=== PATIENT | male | born 2000 | race Caucasian/White ===

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

== ENCOUNTER 2024-09-09 18:30 | Emergency (ER) | payer SELFPAY ==
[2024-09-09 18:31] VITALS: BP 125/91; PULSE 110; RESP 16; TEMP 36.9; O2SAT 100; BMI 30.3
== END 2024-09-09 22:13 | disposition left against medical advice (07) ==
LOC: ED 22:39
DX: Z00.00 Encounter for general adult medical examination without abnormal findings (principal)

== ENCOUNTER 2025-04-30 13:02 | Emergency (ER) | payer OTHER, SELFPAY ==
[2025-04-30 13:02] VITALS: BP 138/87; PULSE 82; RESP 14; TEMP 36.6; O2SAT 98
--- NOTE | 2025-04-30 13:19 | ED.VIS.DENTA ---
HPI History of Present Illness Chief Complaint: Dental Informant: patient Onset/Context/Timing Onset: Yesterday Context: Gradual Onset Timing: Continuous Quality: Stabbing, cramping, and throbbing Location: Right upper and lower molars Worsened by: Cold, eating, and chewing Relieved by: - (Nothing) Associated Symptoms Assocated Symptom - Dental: fever, jaw swelling and cold sensitivity; Negative for face swelling or hot sensitivity Narrative Narrative: Patient presents with dental pain that began yesterday. Patient describes it as stabbing, cramping, and throbbing. Patient states it is over the right upper and lower molars. Patient states it is worse with eating and chewing. Patient also admits to cold sensitivity. Patient admits to subjective fever but denies taking his temperature. Patient admits to some swelling over the upper and lower molar area. Patient denies any difficulty breathing or difficulty swallowing. Patient admits to some nausea due to the pain. [facility] Medical History Pain, dental Home Medications ?Medication ?Instructions ?Recorded ?Last Taken ?Type hydrocodone-acetaminophen 5-325mg 1 tab PO Q6H PRN PRN Pain 3 days 04/30/25 Unknown Rx 5mg-325mg #10 TABLETS penicillin V potassium 500 mg 500 mg PO 4X/DAY #40 tabs 04/30/25 Unknown Rx tablet Allergy/AdvReac Type Severity Reaction Status Date / Time No Known Allergies Allergy Verified 04/30/25 13:02 Surgical History no surgical history no surgical history Social History Smoking Status: Unknown if ever smoked ROS ROS ED Constitutional Constitutional ED: Denies chills or fever(s) Eyes Eyes: Denies blurry vision or change in vision ENT ENT ED: Denies rhinorrhea or sore throat Cardiovascular Cardiovascular: Denies chest pain or palpitations Respiratory/Chest Respiratory/Chest: Denies cough or dyspnea Gastrointestinal Gastrointestinal: Reports nausea; Denies vomiting Genitourinary Genitourinary ED: Denies dysuria or hematuria Musculoskeletal Musculoskeletal: Reports neck pain; Denies back pain Integumentary Denies abscess or rash Neurologic Neurologic: Reports headache(s); Denies weakness Allergic/Immunologic Allergic/Immunologic ED: Denies mouth swelling or urticaria EXAM Physical Exam Const Vital Signs: 04/30/25 13:02 Temperature 98 F Temperature Source Temporal Pulse Rate 82 Respiratory Rate 14 Blood Pressure 138/87 H Blood Pressure Mean 104 Pulse Ox 98 Oxygen Delivery Method Room Air Positive well nourished and well developed General Appearance ED: well developed and NAD HEENT HEENT Narrative: There is a large dental carry noted over the right upper first molar. There is gingival edema around this tooth. There is no discharge or drainage. There is no fluctuance. There is no evidence of any abscess. There is tenderness to percussion over the lower molars as well. Oropharynx is clear. Airway is patent. Neck is supple. Trachea is midline. There is no sublingual edema. There is no evidence of Jasbir's angina. Teeth and Gingiva: caries and gingiva abnormal Positive for gingival edema Throat: posterior oropharynx normal Neck supple and no JVD General: Negative for anterior neck swelling, tenderness or submandibular swelling Neuro oriented x3, CN's II-XII intact bilaterally, moves all extremities, no focal motor deficits and no sensory deficits noted Sensorium / Orientation: alert Motor Exam: strength 5/5 throughout Psych mental status grossly normal MDM MDM MDM Narrative Medical decision making narrative: Patient was advised that he most likely has infected dental caries. Patient was given a dose of Pen-Vee K here. Patient was given a prescription for Pen-Vee K. Patient was given a dose of [place] here. Patient was given a prescription for short course of [place]. Patient was instructed to follow-up with a dentist in 5 to 7 days. Patient was instructed to return if worse in any way. Patient understood and was agreeable with the plan. All questions were answered. Discharge Plan Triage Chief Complaint: Dental ED Provider: Ervin Rodríguez Dx/Rx/DC Orders Clinical Impression: Infected dental caries, Odontalgia Instructions: ED Dental Pain, ED Dental Cavity Prescriptions: New hydrocodone-acetaminophen 5-325 mg tablet 1 tab PO Q6H PRN PRN (Reason: Pain) 3 Days Qty: 10 0RF penicillin V potassium 500 mg tablet 500 mg PO 4X/DAY Qty: 40 0RF Primary Care Provider: Care Physician,No Primary Referrals: Care Physician,No Primary [Primary Care Provider] - Print Language: [place]ian Disposition Disposition: Home, Self Care
[2025-04-30] MEDS: HYDROcodone Bitartrate/Apap 5/325 Tablet PO (13:51)
[2025-04-30] MEDS: Penicillin Vk 250 MG Tablet 500 MG PO (13:51)
--- OUTSIDE RECORDS SUMMARY | 2025-04-30 19:24 | XMS RPT_ITS | CCD ---
Author Organization [facility] Inform ion Partnership [facility] Care Team Providers Care Bleach Maker Name Role Phone KELLY BARBOZA (DANIKA) Referring Unavailable Unavailable Primary Care Provider DOUGLAS Hays Attending Unavailable Provider, Ed Physician Attending Unavailab Care Physician, No Primary Primary Care Unava ilable Care Physician, No Primary Primary Care Provider Unavailable Dr. Ervin Rodríguez DO Emergency Provider [phone] Medications Current Medications Medication Drug Class(es) Dates Sig (Normalized) Sig (Original) acetaminophen 325 mg / HYDROcodone bitartrate 5 mg oral tablet (1 source) Opioid Agonist Start: 04-30-2025 take 1 tablet by mouth every six hours as needed for pain Hydrocodone-Aceta minophen 5-325 mg tablet Active 1 {tbl} PO EVERY 6 HOURS NEEDED as needed for Pain 10 3 0 April 30, 2025 Toothache Other specified disorders of teeth and supporting structures Start: 04-30-2025 take 1 tablet by jessica th every six hours as needed for pain Hydrocodone-Acetaminophen 5-325 mg table t Active 1 {tbl} PO EVERY 6 HOURS NEEDED as needed for Pain 10 3 0 April 30, 2025 Toothache Other specified disorders of teeth and supporting structures penicillin v potassium 500 mg oral tablet (1 source) Start: 04-30-2025 take 1 tablet by mouth four times daily Penicillin V Potassium 500 mg tablet Active 500 mg PO 4 TIMES DAILY 40 0 April 30, 2025 12:00am Problems Problem Classification Problem Date Documented Da te Episodic/Chronic Abdominal pain (1 source) Right upper quadrant pain; Translations: [Right upper quadrant pain] 08-29-2019 Episodic Disorders of teeth and jaw (2 sources) Dental caries; Translations: [Dental caries, unspecified] 04-30-2025 Episodic Suicide and intentional self-inflicted injury (4 sources) Suicidal thoughts; Translations: [Suicidal ideations] Onset: 04-12-2024 04-12-2024 Episodic Results Test Name Value Interpretation Reference Range Facility ACETAMINOPHEN LEVELon 2023 Acetaminophen [Mass/Vol] ug/mL Low 10.0-30.0 [facility] Comment on above: Performed By: #### L AB43, LAB34, LAB46, LAB17 ####Butcher Apprentice: ISABEL VERAS ([id number])[facility] ([address] Acetaminophen [Mass/Vol]on 0 04-12-2024 Interpretation and review of laboratory results Abnormal [facility] CBC W Auto Differential pane l (Bld)on 04-12-2024 Basophils (Bld) [#/Vol] 0.0 10*3/uL 0.0 - 0.2 10*3/uL [facility] Basophils/100 WBC (Bld) 0.4 % 0.0 - 2.0 % [facility] Eosinophils (Bld) [#/Vol] 0.1 10*3/uL 0. 0 - 0.5 10*3/uL [facility] Eosinophils/100 WBC (Bld) 0.8 % 0.0 - 6.0 % [facility] Erythrocyte distribution width (RBC) [Ratio] 13.0 % 11.5 - 15.0 % [facility] Hematocrit (Bld) [Volume fraction] 43.5 % 40.0 - 52.0 % [facility] Hemoglobin (Bld) [Mass/Vol] 14.5 g/dL 13.0 - 18.0 g/dL [facility] Immature granulocytes (Bld) [#/Vol] 0.0 10*3/uL NINF - 0.1 10*3/uL [facility] Immature granulocytes/100 WBC (Bld) 0.3 % 0.0 - 2.0 % [facility] Interpretation and review of laboratory results Normal [facility] Lymphocytes (Bld) [#/Vol] 3.4 10*3/uL 1. 0 - 4.3 10*3/uL [facility] Lymphocytes/100 WBC (Bld) 36.9 % 15.0 - 45. 0 % [facility] MCH (RBC) [Entitic mass] 29.1 pg 26. 0 - 34.0 pg [facility] MCHC (RBC) [Mass/Vol] 33.3 % 30.5 - 36.0 % [facility] MCV (RBC) [Entitic vol] 87.2 fL 77.0 - 99.0 fL [facility] Monocytes (Bld) [#/Vol] 0.7 10*3/uL 0.0 - 0.9 10*3/uL [facility] Monocytes/100 WBC (Bld) 7.1 % 5.0 - 13.0 % [facility] Neutrophils (Bld) [#/Vol] 5.1 10*3/uL 1. 8 - 7.5 10*3/uL [facility] Neutrophils/100 WBC (Bld) 54.5 % 38.0 - 82. 0 % [facility] Nucleated RBC/100 WBC (Bld) [Ratio] 0.0 % [facility] Platelet mean volume (Bld) [Entitic vol] 11.4 fL 9.0 - 12.7 fL [facility] Platelets (Bld) [#/Vol] 209 10*3/uL 140 - 440 10*3/uL [facility] RBC (Bld) [#/Vol] 4.99 10*6/uL 4.40 - 5.9 0 10*6/uL [facility] WBC (Bld) [#/Vol] 9.3 10*3/uL 3.6 - 10.7 10*3/uL [facility] CBC WITH AUTO DIFFERENTIALon 04-12-2024 Basophils (Bld) [#/Vol] 0.0 10*3/uL Normal 0.0-0.2 [facility] Comment on above: Performed By: #### L [id number] ####Butcher Apprentice: ISABEL VERAS ([id number])[address] Basophils/100 WBC (Bld) 0.4 % Normal 0.0-2.0 [facility] Comment on above: Performed By: #### L [id number] ####Butcher Apprentice: ISABEL VERAS ([phone])[facility])[address] [place] [address] Eosinophils (Bld) [#/Vol] 0.1 10*3/uL Normal 0.0-0.5 [facility] Comment on above: Performed By: #### L [id number] ####Butcher Apprentice: ISABEL VERAS ([phone])[facility])[address] [place] [address] Eosinophils/100 WBC (Bld) 0.8 % Normal 0.0-6.0 [facility] Comment on above: Performed By: #### L [id number] ####Butcher Apprentice: ISABEL VERAS ([id number])[facility])[address] [place] [address] Erythrocyte distribution width (RBC) [Ratio] 13.0 % Normal 11.5-15.0 [facility] Comment on above: Performed By: #### L [id number] ####Butcher Apprentice: ISABEL VERAS ([id number])[address] Hematocrit (Bld) [Volume fraction] 43.5 % Normal 40.0-52.0 [facility] Comment on above: Performed By: #### L [id number] ####Butcher Apprentice: ISABEL VERAS ([id number])[address] Hemoglobin (Bld) [Mass/Vol] 14.5 g/dL Normal 13.0-18.0 [facility] Comment on above: Performed By: #### L [id number] ####Butcher Apprentice: ISABEL VERAS ([id number])[facility])[address] [place] [address] IMMATURE GRANS % 0.3 % Normal 0.0-2.0 [facility] Comment on above: Performed By: #### L [id number] ####Butcher Apprentice: ISABEL VERAS ([id number])[address] IMMATURE GRANS ABSOLUTE 0.0 10*3/uL Normal <0.1 [facility] Comment on above: Performed By: #### L [id number] ####Butcher Apprentice: ISABEL VERAS ([id number])[facility])[address] [place] [address] Lymphocytes (Bld) [#/Vol] 3.4 10*3/uL Normal 1.0-4.3 [facility] Comment on above: Performed By: #### L [id number] ####Butcher Apprentice: ISABEL VERAS ([id number])[facility])[address] [place] [address] Lymphocytes/100 WBC (Bld) 36.9 % Normal 15.0-45.0 [facility] Comment on above: Performed By: #### L [id number] ####Butcher Apprentice: ISABEL VERAS ([id number])[facility])[address] [place] [address] MCH (RBC) [Entitic mass] 29.1 pg Normal 26.0-34.0 [facility] Comment on above: Performed By: #### L [id number] ####Butcher Apprentice: ISABEL VERAS ([phone])[facility] ([facility])[address] [place] [address] MCHC 33.3 % Normal 30.5-36.0 [facility] Comment on above: Performed By: #### L [id number] ####Butcher Apprentice: ISABEL VERAS ([id number])[facility] ([facility])[address] [place] [address] MCV (RBC) [Entitic vol] 87.2 fL Normal 77.0-99.0 [facility] Comment on above: Performed By: #### L [id number] ####Butcher Apprentice: ISABEL VERAS ([id number])[facility] ([facility])[address] [place] [address] [place] Monocytes (Bld) [#/Vol] 0.7 10*3/uL Normal 0.0-0.9 [facility] Comment on above: Performed By: #### L [id number] ####Butcher Apprentice: ISABEL VERAS ([id number])[facility])[address] [place] [address] [place] Monocytes/100 WBC (Bld) 7.1 % Normal 5.0-13.[address] [facility] Comment on above: Performed By: #### L [id number] ####Butcher Apprentice: ISABEL VERAS ([id number])[facility] ([facility])[address] [place] [address] NEUTROPHILS ABSOLUTE 5.1 10*3/uL Normal 1.8-7.5 [facility] Comment on above: Performed By: #### L [id number] ####Butcher Apprentice: ISABEL VERAS ([id number])[facility] ([facility])[address] [place] [address] Neutrophils/100 WBC (Bld) 54.5 % Normal 38.0-82.0 [facility] Comment on above: Performed By: #### L [id number] ####Butcher Apprentice: ISABEL VERAS ([id number])[facility] ([facility])[address] [place] [address] NRBC 0.0 /100 WBCs Normal 0.0-2.0 [facility] Comment on above: Performed By: #### L [id number] ####Butcher Apprentice: ISABEL VERAS ([id number])[facility] ([facility])[address] [place] [address] Platelet mean volume (Bld) [Entitic vol] 11.4 fL Normal 9.0-12.7 [facility] Comment on above: Performed By: #### L [id number] ####Butcher Apprentice: ISABEL VERAS ([id number])[facility] ([facility])[address] [place] [address] [place] Platelets (Bld) [#/Vol] 209 10*3/uL Normal 140-440 [facility] Comment on above: Performed By: #### L [id number] ####Butcher Apprentice: ISABEL VERAS ([id number])[facility] ([facility])[address] [place] [address] [place] RBC (Bld) [#/Vol] 4.99 10*6/uL Normal 4.40-5.90 [facility] Comment on above: Performed By: #### L [id number] ####Butcher Apprentice: ISABEL VERAS ([id number])[facility] ([facility])[address] [place] [address] WBC (Bld) [#/Vol] 9.3 10*3/uL Normal 3.6-10.7 [facility] Comment on above: Performed By: #### L [id number] ####Butcher Apprentice: ISABEL VERAS ([id number])[facility] ([facility])[address] [place] [address] COMPLETE URINALYSISon 2023 BACTERIA (#/HPF) IN URINE Negative Normal Negative [facility] Comment on above: Performed By: #### L [id number] ####Butcher Apprentice: ISABEL VERAS ([id number])[facility] ([facility])[address] [place] [address] BILIRUBIN, TOTAL PRESENCE IN URINE Negative Normal Negative [facility] Comment on above: Performed By: #### L [id number] ####Butcher Apprentice: ISABEL VERAS ([id number])[facility] ([facility])[address] [place] [address] Clarity (U) Clear Normal Clear [facility] Comment on above: Performed By: #### L [id number] ####Butcher Apprentice: ISABEL VERAS ([id number])[facility] ([facility])[address] [place] [address] Color (U) Yellow Normal Lt. Yellow [facility] Comment on above: Performed By: #### L [id number] ####Butcher Apprentice: ISABEL VERAS ([id number])[facility] ([facility])[address] [place] [address] GLUCOSE (MG/DL) IN URINE Normal Normal Normal (<70 ) [facility] Comment on above: Performed By: #### L [id number] ####Butcher Apprentice: ISABEL VERAS ([id number])[facility] ([facility])[address] [place] [address] HEMOGLOBIN PRESENCE IN URINE Negative Normal Negative [facility] Comment on above: Performed By: #### L [id number] ####Butcher Apprentice: ISABEL VERAS ([id number])[facility] ([facility])[address] [place] [address] [place] HYALINE CASTS (#/LPF) IN URINE SEDIMENT BY MICROSCOPY Negative Normal Negative [facility] Comment on above: Performed By: #### L [id number] ####Butcher Apprentice: ISABEL VERAS ([id number])[facility] ([facility])[address] [place] [address] Ketones Ql (U) Negative Normal Negative [facility] Comment on above: Performed By: #### L [id number] ####Butcher Apprentice: ISABEL VERAS ([id number])[facility] ([facility])[address] [place] [address] LEUKOCYTE ESTERASE PRESENCE IN URINE BY TEST STRIP Negative Normal Negative [facility] Comment on above: Performed By: #### L [id number] ####Butcher Apprentice: ISABEL VERAS ([id number])[facility] ([facility])[address] [place] [address] [place] MUCUS (#/LPF) IN URINE SEDIMENT Few Normal Negative [facility] Comment on above: Performed By: #### L [id number] ####Butcher Apprentice: ISABEL VERAS ([id number])[facility] ([facility])[address] [place] [address] NITRITE PRESENCE IN URINE Negative Normal Negative [facility] Comment on above: Performed By: #### L [id number] ####Butcher Apprentice: ISABEL VERAS ([id number])[facility] ([facility])[address] [place] [address] pH (U) 5.5 [pH] Normal 5.0-8.0 [facility] Comment on above: Performed By: #### L [id number] ####Butcher Apprentice: ISABEL VERAS ([id number])[facility] ([facility])[address] [place] [address] Protein (U) [Mass/Vol] 30 mg/dL Abnormal Negative [facility] Comment on above: Performed By: #### L [id number] ####Butcher Apprentice: ISABEL VERAS ([id number])[facility] ([facility])[address] [place] [address] RBC (#/HPF) IN URINE SEDIMENT 0-2 Normal 0-2 [facility] Comment on above: Performed By: #### L [id number] ####Butcher Apprentice: ISABEL VERAS ([id number])[facility] ([facility])[address] [place] [address] Specific gravity (U) [Rel density] 1.035 High 1.005-1.030 [facility] Comment on above: Performed By: #### L [id number] ####Butcher Apprentice: ISABEL VERAS ([id number])[facility])[address] [place] [address] SQUAMOUS EPITHELIAL CELLS (#/HPF) IN URINE SEDIMENT 0-2 Normal 3-5 [facility] Comment on above: Performed By: #### L [id number] ####Butcher Apprentice: ISABEL VERAS ([id number])[facility] ([facility])[address] [place] [address] UROBILINOGEN (MG/DL) IN URINE Normal Normal Normal (0-1) [facility] Comment on above: Performed By: #### L [id number] ####Butcher Apprentice: ISABEL VERAS ([phone])[facility])[address] [place] [address] WBC (LEUKOCYTE) (#/HPF) IN URINE SEDIMENT 0-2 Normal 0-5 [facility] Comment on above: Performed By: #### L [id number] ####Butcher Apprentice: ISABEL VERAS ([id number])[facility] ([facility])[address] [place] [address] COMPREHENSIVE METABOLIC PANE Shant 04-12-2024 Albumin [Mass/Vol] 4.5 g/dL Normal 3.5-5.0 [facility] Comment on above: Performed By: #### L AB43, LAB34, LAB46, LAB17 ####Butcher Apprentice: ISABEL VERAS ([id number])[facility] ([facility])[address] [place] [address] ALP [Catalytic activity/Vol] 68 U/L Normal 38-126 [facility] Comment on above: Performed By: #### L AB43, LAB34, LAB46, LAB17 ####Butcher Apprentice: ISABEL VERAS ([id number])[facility] ([facility])[address] [place] [address] ALT [Catalytic activity/Vol] 54 U/L High 0-49 [facility] Comment on above: Performed By: #### L AB43, LAB34, LAB46, LAB17 ####Butcher Apprentice: ISABEL VERAS ([id number])[facility] ([facility])[address] [place] [address] Anion gap [Moles/Vol] 7 mmol/L Normal 3-13 [facility] Comment on above: Performed By: #### L AB43, LAB34, LAB46, LAB17 ####Butcher Apprentice: ISABEL VERAS ([id number])[facility] ([facility])[address] [place] [address] AST [Catalytic activity/Vol] 35 U/L Normal 15-46 [facility] Comment on above: Performed By: #### L AB43, LAB34, LAB46, LAB17 ####Butcher Apprentice: ISABEL VERAS ([id number])[facility] ([facility])[address] [place] [address] Bilirubin [Mass/Vol] 0.6 mg/dL Normal 0.2-1.3 [facility] Comment on above: Performed By: #### L AB43, LAB34, LAB46, LAB17 ####Butcher Apprentice: ISABEL VERAS ([id number])[facility] ([facility])[address] [place] [address] Calcium [Mass/Vol] 9.4 mg/dL Normal 8.4-10.4 [facility] Comment on above: Performed By: #### L AB43, LAB34, LAB46, LAB17 ####Butcher Apprentice: ISABEL VERAS ([id number])[facility] ([facility])[address] [place] [address] [place] Chloride [Moles/Vol] 100 mmol/L Normal 98-107 [facility] Comment on above: Performed By: #### L AB43, LAB34, LAB46, LAB17 ####Butcher Apprentice: ISABEL VERAS ([id number])[facility] ([facility])[address] [place] [address] CO2 [Moles/Vol] 33 mmol/L High 22-30 [facility] Comment on above: Performed By: #### L AB43, LAB34, LAB46, LAB17 ####Butcher Apprentice: ISABEL VERAS ([id number])[facility] ([facility])[address] [place] [address] Creatinine [Mass/Vol] 0.90 mg/dL Normal 0.66-1.25 [facility] Comment on above: Performed By: #### L AB43, LAB34, LAB46, LAB17 ####Butcher Apprentice: ISABEL VERAS ([id number])[facility] ([facility])[address] [place] [address] GLOMERULAR FILTRATION RATE ML/MIN/1.73 SQ M.PREDICTED >90.0 Normal >60.0 [facility] Comment on above: Result Comment: Calc ulation based on the Chronic Kidney Disease Epidemiology Collaboration (CKD-EPI) equation refit without adjustment for race Performed By: #### L AB43, LAB34, LAB46, LAB17 ####Butcher Apprentice: ISABEL VERAS ([id number])[facility] ([facility])[address] [place] [address] [place] Glucose [Mass/Vol] 78 mg/dL Normal 70-100 [facility] Comment on above: Performed By: #### L AB43, LAB34, LAB46, LAB17 ####Butcher Apprentice: ISABEL VERAS ([id number])[facility] ([facility])[address] [place] [address] [place] Potassium [Moles/Vol] 3.3 mmol/L Low 3.5-5.1 [facility] Comment on above: Performed By: #### L AB43, LAB34, LAB46, LAB17 ####Butcher Apprentice: ISABEL VERAS ([id number])[facility])[address] [place] [address] Protein [Mass/Vol] 7.7 g/dL Normal 6.3-8.2 [facility] Comment on above: Performed By: #### L AB43, LAB34, LAB46, LAB17 ####Butcher Apprentice: ISABEL VERAS ([id number])[facility] ([facility])[address] [place] [address] Sodium [Moles/Vol] 140 mmol/L Normal 135-145 [facility] Comment on above: Performed By: #### L AB43, LAB34, LAB46, LAB17 ####Butcher Apprentice: ISABEL VERAS ([id number])[facility])[address] [place] [address] Urea nitrogen [Mass/Vol] 14 mg/dL Normal 9-20 [facility] Comment on above: Performed By: #### L AB43, LAB34, LAB46, LAB17 ####Butcher Apprentice: ISABEL VERAS ([id number])[facility])[address] [place] [address] Comprehensive metabolic 1998 panelon 04-12-2024 Albumin [Mass/Vol] 4.5 g/dL 3.5 - 5.0 g/dL [facility] ALP [Catalytic activity/Vol] 68 U/L 38 - 126 U/L [facility] ALT [Catalytic activity/Vol] 54 U/L High 0 - 49 U/L [facility] Anion gap [Moles/Vol] 7 mmol/L 3 - 13 mmol/L [facility] AST [Catalytic activity/Vol] 35 U/L 15 - 46 U/L [facility] Bilirubin [Mass/Vol] 0.6 mg/dL 0.2 - 1 .3 mg/dL [facility] Calcium [Mass/Vol] 9.4 mg/dL 8.4 - 10. 4 mg/dL [facility] Chloride [Moles/Vol] 100 mmol/L 98 - 10 7 mmol/L [facility] CO2 [Moles/Vol] 33 mmol/L High 22 - 30 mmol/L [facility] Creatinine [Mass/Vol] 0.90 mg/dL 0.66 - 1.25 mg/dL [facility] GFR/1.73 sq M.predicted MDRD (S/P/Bld) [Vol rate/Area] - PINF [facility] Comment on above: Calculation based on the Chronic Kidney Disease Epidemiology Collaboration (CKD-EPI) equation refit without adjustment for race Glucose [Mass/Vol] 78 mg/dL 70 - 100 mg/dL [facility] Interpretation and review of laboratory results Abnormal [facility] Potassium [Moles/Vol] 3.3 mmol/L Low 3.5 - 5.1 mmol/L [facility] Protein [Mass/Vol] 7.7 g/dL 6.3 - 8.2 g/dL [facility] Sodium [Moles/Vol] 140 mmol/L 135 - 145 mmol/L [facility] Urea nitrogen [Mass/Vol] 14 mg/dL 9 - 20 mg/d L [facility] DRUGS OF ABUSEon 04-12-2024 AMPHETAMINE SCREEN Positive Normal [facility] Comment on above: Performed By: #### L [id number] ####Butcher Apprentice: ISABEL VERAS ([id number])[facility])[address] [place] [address] BARBITURATES SCREEN Negative Normal [facility] Comment on above: Performed By: #### L [id number] ####Butcher Apprentice: ISABEL VERAS ([id number])[facility] ([facility])[address] [place] [address] BENZODIAZEPINE SCREEN Negative Normal [facility] Comment on above: Performed By: #### L [id number] ####Butcher Apprentice: ISABEL VERAS ([id number])[facility])[address] [place] [address] COCAINE METAB. SCREEN Negative Normal [facility] Comment on above: Performed By: #### L [id number] ####Butcher Apprentice: ISABEL VERAS ([id number])[facility] ([facility])[address] [place] [address] METHADONE SCREEN Negative Normal [facility] Comment on above: Performed By: #### L [id number] ####Butcher Apprentice: ISABEL VERAS ([id number])[facility] ([facility])[address] [place] [address] OPIATES SCREEN Negative Normal [facility] Comment on above: Performed By: #### L [id number] ####Butcher Apprentice: ISABEL VERAS ([id number])[facility] ([facility])[address] [place] [address] OXYCODONE SCREEN Negative Normal [facility] Comment on above: Performed By: #### L [id number] ####Butcher Apprentice: ISABEL VERAS ([id number])[facility] ([facility])[address] [place] [address] PHENCYCLIDINE SCREEN Negative Normal [facility] Comment on above: Result Comment: HARLEY R COMMENTS: The expected value for all of the drugs listed above is Negative. The following drugs or drug groups have been screened for by Immunoassay at the following thresholds: Amphetamine class (1000 ng/mL) Barbiturates (200 ng/mL) Benzodiazepines (200 ng/mL) Cocaine (300 ng/mL) Methadone (300 ng/mL) Opiates (300 ng/mL) Oxycodone (100 ng/mL) PCP (25 ng/mL) NOTE: These results are for medical treatment only. Analysis performed using non-forensic procedures. POSITIVE results are NOT confirmed by a more specific alternative method unless requested. If confirmation is needed, request confirmation under separate order. Performed By: #### L [id number] ####Butcher Apprentice: ISABEL VERAS ([id number])[facility] ([facility])[address] [place] [address] ED Nursing Noteon 04-12-2024 ED Nursing Note Pt is being discharged. He was given his belongings and taken to room 47 to change back into his own clothing. Lorraine Scott 04/12/24 1008 [facility] ED Nursing Note Providers in room speaking with pt. Michelle Avila 04/12/24 0854 [facility] ED Nursing Note Pt using the bathroom per request Michelle Avila 04/12/24 0849 [facility] ED Nursing Note Breakfast tray given to pt. Michelle Bustillos Austin 04/12/24 0824 [facility] ED Nursing Note Provider in room speaking with pt Michelle Gonzalezpson 04/12/24 0743 [facility] ED Nursing Note Registration in [facility] 04/12/24 0713 [facility] ED Nursing Note Patient had urine collected and sent to lab. Juan Ramon Madden RN 04/12/24 0710 [facility] ED Nursing Note Isaiah Gomez in rm obtaining vitals [facility] 04/12/24 0659 [facility] ED Nursing Note Dr Mcknight in speaking w/ pt [facility] 04/12/24 0623 [facility] ED Nursing Note Wanded by PS 2 bags [facility] 04/12/24 0603 [facility] ED Nursing Note Pt changing into 2 gowns, non slip socks [facility] 04/12/24 0549 [facility] ED Nursing Note Pt walked back to ED BH unit by JANESSA Tenorio In rm 47 for intake process Calm and cooperative. [facility] 04/12/24 0547 [facility] ED Nursing Note Patient presents to the ED via triage by self. Patient states that he has been struggling with anxiety, depression, and suicidal ideation. Patient states that he has been having a rough time recently. Patient states that he was recently fired and he was kicked out of his dads home. Patient currently living out of his vehicle. Patient states that he has had vivid images about suicide. Patient also states that he was walking down train tracks at one time and thought about jumping but didn't. Patient states that he lost his brother in law in October and felt like he pulled him back off of the train tracks. Patient calm and cooperative throughout triage process. [facility] ED Provider Noteon ED Provider Note EMERGENCY DEPARTMENT ENCOUNTER Pt Name: Keyana Pham Birthdate 2000 Date of evaluation: 04/12/2024 ED Provider: Fernando Mcknight II, MD CHIEF COMPLAINT Chief Complaint Patient presents with Psychiatric Evaluation HISTORY OF PRESENT ILLNESS (Location/Symptom, Timing/Onset, Context/Setting, Quality, Duration, Modifying Factors, Severity) Note limiting factors. I wore appropriate PPE for the entirety of this encounter. HPI Keyana Pham is a 23 y.o. who presents to the emergency department with concerns for suicidal ideation. Patient details multiple psychosocial conflicts with his ex-girlfriend and his father. Patient states that he has been having intensifying thoughts of hurting himself over the past couple weeks. He states that he has thought of various ways to do this including walking onto the railroad tracks as well as driving his truck off the road. Patient denies any habitual alcohol use but states that he uses amphetamines multiple times within the past 24 hours. Patient states that he has been having nonspecific auditory hallucinations. He does not take any psychiatric medications. Nursing Notes were reviewed. Limitations to history: Outside historians: REVIEW OF SYSTEMS Review of Systems Pertinent positives and negatives as per HPI. PAST MEDICAL HISTORY History reviewed. No pertinent past medical history. SURGICAL HISTORY History reviewed. No pertinent surgical history. CURRENT MEDICATIONS Previous Medications No medications on file ALLERGIES Patient has no known allergies. FAMILY HISTORY No family history on file. SOCIAL HISTORY Social History Socioeconomic History Marital status: Single Tobacco Use Smoking status: Some Days Types: Cigarettes Smokeless tobacco: Never Vaping Use Vaping Use: Every day Substance and Sexual Activity Alcohol use: Yes Drug use: Yes Types: Methamphetamines, Marijuana SCREENINGS PHYSICAL EXAM ED Triage Vitals [04/12/24 0548] Temp Heart Rate Resp BP 36.8 ?C (98.3 ?F) 105 18 131/88 SpO2 Temp Source Heart Rate Source Patient Position 100 % Temporal Monitor -- BP Location FiO2 (%) -- -- Physical Exam Vitals and nursing note reviewed. Constitutional: General: He is not in acute distress. Appearance: He is well-developed. HENT: Head: Normocephalic and atraumatic. Eyes: Conjunctiva/sclera: Conjunctivae normal. Cardiovascular: Rate and Rhythm: Normal rate and regular rhythm. Heart sounds: No murmur heard. Pulmonary: Effort: Pulmonary effort is normal. No respiratory distress. Breath sounds: Normal breath sounds. Abdominal: Palpations: Abdomen is soft. Tenderness: There is no abdominal tenderness. Musculoskeletal: General: No swelling. Cervical back: Neck supple. Skin: General: Skin is warm and dry. Capillary Refill: Capillary refill takes less than 2 seconds. Neurological: Mental Status: He is alert. Psychiatric: Mood and Affect: Mood normal. DIAGNOSTIC RESULTS RADIOLOGY (Per Emergency Physician): Interpretation per the Radiologist below, if available at the time of this note: No orders to display LABS: Labs Reviewed COMPREHENSIVE METABOLIC PANEL - Abnormal Result Value SODIUM 140 POTASSIUM 3.3 (*) CHLORIDE 100 CARBON DIOXIDE 33 (*) ANION GAP 7 UREA NITROGEN 14 CREATININE 0.90 GLUCOSE 78 CALCIUM 9.4 AST (SGOT) 35 ALT 54 (*) ALKALINE PHOSPHATASE 68 ALBUMIN 4.5 BILIRUBIN, TOTAL 0.6 TOTAL PROTEIN 7.7 eGFR >90.0 COMPLETE URINALYSIS - Abnormal Color, Urine Yellow Clarity, Urine Clear pH, Urine 5.5 Leukocytes, Urine Negative Nitrite, Urine Negative Protein, Urine 30 (*) Glucose, Urine Normal Bilirubin, Urine Negative Ketones, Urine Negative Urobilinogen, Urine Normal Blood, Urine Negative RBC, Urine 0-2 WBC, Urine 0-2 Squamous Epithelial, Urine 0-2 Bacteria, Urine Negative Mucus, Urine Few Hyaline Casts, Urine Negative SPECIFIC GRAVITY OF URINE (NUMERIC) 1.035 (*) ACETAMINOPHEN LEVEL - Abnormal ACETAMINOPHEN <10.0 (*) SARS-COV-2 ANTIGEN - Normal SARS-CoV-2 Antigen Negative CBC WITH AUTO DIFFERENTIAL - Normal Auto WBC 9.3 RBC 4.99 Hemoglobin 14.5 Hematocrit 43.5 MCV 87.2 MCH 29.1 MCHC 33.3 RDW 13.0 Platelets 209 MPV 11.4 nRBC 0.0 Neutrophils Relative 54.5 Lymphocytes Relative 36.9 Monocytes Relative 7.1 Eosinophils Relative 0.8 Basophils Relative 0.4 Immature Grans % 0.3 Neutrophils Absolute 5.1 Lymphocytes Absolute 3.4 Monocytes Absolute 0.7 Eosinophils Absolute 0.1 Basophils Absolute 0.0 Immature Grans Absolute 0.0 ETHANOL - Normal ETHANOL IN SER/PLAS <0.010 Narrative: NOTE: This result is for medical treatment only. Analysis performed using non-forensic procedures. SALICYLATE - Normal SALICYLATES <1.0 COMPLETE URINALYSIS WITH REFLEX TO CULTURE Narrative: The following orders were created for panel order Complete Urinalysis wit (more content not included)... Normal [facility] ED Provider Note Emergency Department Encounter [facility] EMERGENCY DEPT Patient: Keyana Pham : 2000 Date of Evaluation: 04/12/2024 ED Supervising Physician: Douglas Lord MD I personally evaluated Keyana Pham and made/approved the management plan and take responsibility for the patient management. This will serve as my Supervisory note and shared attestation. I did perform a substantive portion of the visit including all aspects of the Medical Decision Making. I wore appropriate PPE for the entirety of this encounter. In brief, Keyana Pham is a 23 y.o. that presents to the emergency department suicidal ideation not feeling better admits to methamphetamine use no medical complaints Focused exam: Patient is calm cooperative forthcoming with information denies suicidal ideation expresses need to see a psychiatrist and likely be on meds vital stable Brief ED course/MDM: Patient presenting with suicidal ideation vitals are stable has no medical complaints. Patient is very forthcoming with information admits to walking on train tracks a few weeks ago contemplating suicide he says he is not suicidal now but understands that he likely needs to see a psychiatrist again on medications preference would be to go home and follow-up as an outpatient with possible with psychiatry evaluate if they agree feel relatively comfortable with discharge close outpatient follow-up with his ex-girlfriend who can come pick him up and take him to his car where he is living out of currently Diagnostics interpreted by me: I personally discussed the patient's management with other clinicians: All diagnostic, treatment, and disposition decisions were made by myself in conjunction with the Resident. I also supervised mckeon portions of any procedures performed by the Resident. For all further details of the patient's emergency department visit, please see their documentation. (Comment: Please note this report has been produced using speech recognition software and may contain errors related to that system including errors in grammar, punctuation, and spelling, as well as words and phrases that may be inappropriate. If there are any questions or concerns please feel free to contact the dictating provider for clarification.) Douglas Lord MD [employer] Douglas Lord MD 04/12/24 0810 Normal [facility] ETHANOLon 04-12-2024 ETHANOL IN SER/PLAS <0.010 Normal 0.000-0.010 [facility] Comment on above: Result Comment: HARLEY Henriquez COMMENTS: NOTE: This result is for medical treatment only. Analysis performed using non-forensic procedures. Performed By: #### L AB43, LAB34, LAB46, LAB17 ####Butcher Apprentice: ISABEL VERAS ([id number])[facility] ([facility])[address] [place] [address] Ethanol (Bld) [Mass/Vol]on 0 04-12-2024 Ethanol [Mass/Vol] g/dL 0.000 - 0 .010 g/dL [facility] Interpretation and review of laboratory results Normal [facility] Laboratory - Drug toxicology Ordered By: Rodney Hyatt on 04-12-2024 Amphetamines Screen method >1000 ng/mL Ql (U) Positive [facility] Barbiturates Screen method >200 ng/mL Ql (U) Negative [facility] ealth Benzodiazepines Ql (U) Negative [facility] Methadone Screen Ql (U) Negative [facility] Opiates Screen Ql (U) Negative [facility] oxyCODONE Ql (U) Negative [facility] alth Phencyclidine Ql (U) Negative [facility] Laboratory - Drug toxicology on 04-12-2024 Acetaminophen [Mass/Vol] ug/mL Low 10. 0 - 30.0 ug/mL [facility] Salicylates [Mass/Vol] mg/dL NINF - 20.0 mg/dL [facility] Laboratory - Microbiology an d Antimicrobial susceptibilityOrdered By: Kirsten Martinez on 04-12-2024 SARS-CoV-2 (COVID-19) Ag IA.rapid Ql (Resp) Negative Negative [facility] Comment on above: A negative result do es not rule out the possibility of SARS-CoV-2 infection. NAAT-based methods should be considered for symptomatic patients presenting greater than seven days after onset of symptoms. Method: Lateral flow immunoassay. Fact sheets for healthcare providers and patients can be found at the following sites: https://www.fda.gov/media/777163/download https://www.fda.gov/media/529462/download No Panel InformationOrdered By: Rodney Hyatt on 04-12-2024 COCAINE METAB. SCREEN Negative [facility] The expected value for all of the drugs listed above is Negative. The following drugs or drug groups have been screened for by Immunoassay at the following thresholds: Amphetamine class (1000 ng/mL) Barbiturates (200 ng/mL) Benzodiazepines (200 ng/mL) Cocaine (300 ng/mL) Methadone (300 ng/mL) Opiates (300 ng/mL) Oxycodone (100 ng/mL) PCP (25 ng/mL) NOTE: These results are for medical treatment only. Analysis performed using non-forensic procedures. POSITIVE results are NOT confirmed by a more specific alternative method unless requested. If confirmation is needed, request confirmation under separate order. [facility] No Panel Informationon 04-12 [facility] SALICYLATEon 04-12-2024 SALICYLATES <1.0 Normal <20.0 [facility] Comment on above: Performed By: #### L AB43, LAB34, LAB46, LAB17 ####Butcher Apprentice: ISABEL VERAS ([phone])[address] SARS-COV-2 ANTIGENon 024 SARS-COV-2 ANTIGEN SARS-COV-2 ANTIGEN -BINAX Reference Negative Negative A negative result does not rule out the possibility of SARS-CoV-2 infection. NAAT-based methods should be considered for symptomatic patients presenting greater than seven days after onset of symptoms. Method: Lateral flow immunoassay. Fact sheets for healthcare providers and patients can be found at the following sites: https://www.fda.gov /media/166005/downl oad https://www.fda.gov /media/741620/downl oad Normal [facility] Comment on above: Performed By: #### L [id number] #### Butcher Apprentice: ISABEL VERAS ([id number]) [address] SARS-CoV-2 (COVID-19) Ag IA. rapid Ql (Resp)Ordered By: Kirsten Martinez on 04-12-2024 Interpretation and review of laboratory results Normal [facility] Salicylates [Mass/Vol]on Interpretation and review of laboratory results Normal [facility] Urinalysis complete panel (U )Ordered By: Bee Jerome on 04-12-2024 Bacteria LM.HPF (Urine sed) [#/Area] Negative Negative /HPF [facility] Bilirubin Ql (U) Negative Negative mg/dL [facility] Clarity (U) Clear Clear [facility] Color (U) Yellow Lt. Yellow [facility] Epithelial cells.squamous LM.HPF (Urine sed) [#/Area] 0-2 [facility] Glucose Ql (U) Normal Normal (<70) mg/dL [facility] Hemoglobin Ql (U) Negative Negative mg/dL [facility] Hyaline casts Auto (Urine sed) [#/Area] Negative Negative /LPF [facility] Interpretation and review of laboratory results Abnormal [facility] Ketones (U) [Mass/Vol] Negative Negat maribel mg/dL [facility] Leukocyte esterase Test strip Ql (U) Negative Negative Reese/uL [facility] Mucus LM.HPF (Urine sed) [#/Area] Few Negative /LPF [facility] Nitrite Ql (U) Negative Negative [facility] th pH (U) 5.5 [pH] 5.0 - 8.0 pH [facility] Protein (U) [Mass/Vol] 30 mg/dL Abnormal Negative [facility] RBC LM.HPF (Urine sed) [#/Area] 0-2 [facility] Specific gravity (U) [Rel density] 1.035 High 1.005 - 1.030 [facility] Urobilinogen (U) [Mass/Vol] Normal Normal (0-1) mg/dL [facility] WBC LM.HPF (Urine sed) [#/Area] 0-2 [facility] CNOVon 12-22-2018 CNOV Office Visit (UCWSTR) ---- KEYANA PHAM ([id number]) 1 M Date Time Provider Department 12/22/18 4:00 PM KELLY BARBOZA (ANA LAURA) [facility] During your visit today, we recorded the following information about you: Temperature Pulse Respiration Blood pressure 98.7 degrees 100/minute 16/minute 120/80 Weight 103 kg Kelly Barboza APRN.CNP 12/22/2018 5:02 PM Signed Subjective HPI HPI Keyana Pham is a 18 year old male who presents today for CC of right knee pain, after twisting last week. This started 1 week ago. Has tried ice/ibuprofen. Symptoms are worsened by walking. Intermittent tingling of right lower extremity. .Patient presents with: Knee Pain: Right No past medical history on file. No past surgical history on file. ALLERGIES Patient has no known allergies. MEDICATIONS methylphenidate ER (CONCERTA) 18 mg CR tablet Take 18 mg by mouth once daily. No family history on file. Social History Substance Use Topics - Smoking status: Former Smoker - Smokeless tobacco: Former User - Alcohol use Not on file ROS Objective Blood pressure 120/80, pulse 100, temperature 37.1 ?C (98.7 ?F), temperature source Left Tympanic, resp. rate 16, weight 103 kg (227 lb). Physical Exam Constitutional: He is oriented to person, place, and time and well-developed, well-nourished, and in no distress. Non-toxic appearance. He does not have a sickly appearance. No distress. HENT: Head: Normocephalic and atraumatic. Cardiovascular: Pulses: Dorsalis pedis pulses are 2+ on the right side. Posterior tibial pulses are 2+ on the right side. Pulmonary/Chest: Effort normal. No accessory muscle usage. No respiratory distress. Musculoskeletal: Right knee: He exhibits decreased range of motion and swelling. He exhibits no effusion, no ecchymosis, no deformity, no laceration and no erythema. Tenderness found. Lateral joint line tenderness noted. Right lower extremity distal sensation intact. Neurological: He is alert and oriented to person, place, and time. Skin: He is not diaphoretic. ASSESSMENT/PLAN: 1. Acute pain of right knee - ICD9: 719.46, ICD10: M25.561 -no bony abnormality noted on xray, my read, will call when radiologist read is in -given stretches/exercises -Rest, Ice, Compression, Elevation discussed -discussed use of ibuprofen -follow up with primary care if symptoms persist/worsen in 10-14 days - XR KNEE GENERAL 4V AP BOTH/PA BOTH/LAT/MERC RT - Dictated by : KAILEE FLORIAN MD Impression IMPRESSION: No acute osseous abnormality. Prescription instructions reviewed with patient as applicable. Patient advised if symptoms do not improve or if symptoms worsen sooner, to contact the office for further evaluation by their primary care physician. Potential red flag symptoms discussed with the patient. Reviewed appropriate action plan to take if red flag symptoms occur. Patient agreeable to treatment plan. Kelly Barboza APRN.ANA LAURA Barboza APRN.CNP 12/22/2018 4:48 PM Signed ASSESSMENT/PLAN: 1. Acute pain of right knee - ICD9: 719.46, ICD10: M25.561 -no bony abnormality noted on xray, my read, will call when radiologist read is in -given stretches/exercises -Rest, Ice, Compression, Elevation discussed -discussed use of ibuprofen -follow up with primary care if symptoms persist/worsen in 10-14 days - XR KNEE GENERAL 4V AP BOTH/PA BOTH/LAT/MERC RT Referring Provider: SELF [200] Allergies As of Date: 12/22/2018 (No Known Allergies) Date Reviewed: 12/22/2018 Reviewed by: Kelly (Ana Laura) - Fully Assessed Reason for Visit: Knee Pain [132] Cmt: Right Primary Visit Diagnosis:Acute pain of right knee [M25.561] Order(s):XR KNEE GENERAL 4V AP BOTH/PA BOTH/LAT/MERC RT [[id number]] Order #: [id number] #:[id number] methylPREDNISolone (MEDROL, TRACY,) 4 mg Dose-PackFollow dosing instructions, take with food.Disp: 1 PackageRfl: 0 Prescriptions as of 12/22/2018 Sig: METHYLPREDNISOLONE 4 MG TABLE* Follow dosing instructions, t* METHYLPHENIDATE ER 18 MG TABL* Take 18 mg by mouth once luci* Problem List As Of Date: 12/22/2018 (None) Other instructions from your clinician: ASSESSMENT/PLAN: 1. Acute pain of right knee - ICD9: 719.46, ICD10: M25.561 -no bony abnormality noted on xray, my read, will call when radiologist read is in -given stretches/exercises -Rest, Ice, Compression, Elevation discussed -discussed use of ibuprofen -follow up with primary care if symptoms persist/worsen in 10-14 days - XR KNEE GENERAL 4V AP BOTH/PA BOTH/LAT/MERC RT Prescriptions ordered this encounter Disp Refills Start End METHYLPREDNISOLONE 4 MG TABLETS IN A* 1 Pa* 0 12/22/2018 12/28/2018 Sig: Follow dosing instructions, take with food. Letter Text [place] Kelly Barboza CNP [address] [place], [place] [address] 12/22/2018 Keyana Pham [facility]# [id number] [address] [facility] [address] TO WHOM IT MAY CONCERN: This is to confirm that Keyana Pham had an appointment and was seen at the [facility] in the Department of Urgent Care by Kelly Barboza CNP on 12/22/2018. Sincerely, Kelly Barboza CNP Encounter Status:Closed by KELLY BARBOZA CNP on 12/22/18 Normal [facility] PROGRESSon 12-22-2018 Protein mass conc HNO ID: [id number] Author: Isaiah Dominguez (Rt) Service: (none) Author Type: Furrier Shop Supervisor Type: Progress Notes Filed: 12/22/2018 4:39 PM Note Text: Radiology Service Progress Note PATIENT NAME: Keyana Pham DATE OF SERVICE: December 22, 2018 TIME: 4:26 PM PATIENT IDENTITY VERIFICATION COMPLETED USING TWO (2) METHODS: Patient confirmed name verbally and Date of . PATIENT GENDER DATA: Male PATIENT RELEVANT IMPLANT DATA REVIEWED: Not Applicable RADIOLOGY DEPARTMENT: General X-ray: Exam(s) Completed: Lower Extremity X-Ray(s): Knee, AP / Lat / Tunne / Merchant Right and Wt. Bearing: PERIPHERAL IV DATA: Not applicable SIGNED BY: RT Alberto December 22, 2018 4:26 PM Normal [facility] Protein mass conc HNO ID: [id number] Author: Kelly Barboza Service: (none) Author Type: Nurse Practitioner Type: Progress Notes Filed: 12/22/2018 5:02 PM Note Text: Subjective HPI HPI Keyana Pham is a 18 year old male who presents today for CC of right knee pain, after twisting last week. This started 1 week ago. Has tried ice/ibuprofen. Symptoms are worsened by walking. Intermittent tingling of right lower extremity. .Patient presents with: Knee Pain: Right No past medical history on file. No past surgical history on file. ALLERGIES Patient has no known allergies. MEDICATIONS methylphenidate ER (CONCERTA) 18 mg CR tablet Take 18 mg by mouth once daily. No family history on file. Social History Substance Use Topics - Smoking status: Former Smoker - Smokeless tobacco: Former User - Alcohol use Not on file ROS Objective Blood pressure 120/80, pulse 100, temperature 37.1 ?C (98.7 ?F), temperature source Left Tympanic, resp. rate 16, weight 103 kg (227 lb). Physical Exam Constitutional: He is oriented to person, place, and time and well-developed, well-nourished, and in no distress. Non-toxic appearance. He does not have a sickly appearance. No distress. HENT: Head: Normocephalic and atraumatic. Cardiovascular: Pulses: Dorsalis pedis pulses are 2+ on the right side. Posterior tibial pulses are 2+ on the right side. Pulmonary/Chest: Effort normal. No accessory muscle usage. No respiratory distress. Musculoskeletal: Right knee: He exhibits decreased range of motion and swelling. He exhibits no effusion, no ecchymosis, no deformity, no laceration and no erythema. Tenderness found. Lateral joint line tenderness noted. Right lower extremity distal sensation intact. Neurological: He is alert and oriented to person, place, and time. Skin: He is not diaphoretic. ASSESSMENT/PLAN: 1. Acute pain of right knee - ICD9: 719.46, ICD10: M25.561 -no bony abnormality noted on xray, my read, will call when radiologist read is in -given stretches/exercises -Rest, Ice, Compression, Elevation discussed -discussed use of ibuprofen -follow up with primary care if symptoms persist/worsen in 10-14 days - XR KNEE GENERAL 4V AP BOTH/PA BOTH/LAT/MERC RT - Dictated by : KAILEE FLORIAN MD Impression IMPRESSION: No acute osseous abnormality. Prescription instructions reviewed with patient as applicable. Patient advised if symptoms do not improve or if symptoms worsen sooner, to contact the office for further evaluation by their primary care physician. Potential red flag symptoms discussed with the patient. Reviewed appropriate action plan to take if red flag symptoms occur. Patient agreeable to treatment plan. Kelly Barboza APRN.FORMULA CLERK Normal [facility] XR KNEE 4V AP/PA BOTH+LAT/ME R RTon 12-22-2018 XR KNEE 4V AP/PA BOTH+LAT/MARCELINO RT * * *Final Report* * * DATE OF EXAM: Dec 22 2018 4:38PM WOX 5203 - XR KNEE 4V AP/PA BOTH+LAT/MARCELINO RT / PROCEDURE REASON: Acute pain of right knee * * * * Physician Interpretation * * * * TECHNIQUE: XR KNEE 4V AP/PA BOTH+LAT/MARCELINO RT HISTORY: Acute pain of right knee COMPARISON: None RESULT: The joint spaces are maintained. There are no fractures or dislocations identified. Bone mineralization is maintained. No soft tissue calcification. No significant suprapatellar knee effusion. IMPRESSION: No acute osseous abnormality. Agricultural Purchasing Agent: PSCB Transcribe Date/Time: Dec 22 2018 4:42P Dictated by : KAILEE FLORIAN MD This examination was interpreted and the report reviewed and electronically signed by: ANAIS DAVALOS MD on Dec 22 2018 4:47PM EST [id number] Normal [facility] Vital Signs Date Time Vital Sign Value Performing Clinician Mireille wade 04-30-2025 13:02-0400 Body height 180.34 cm No Primary Care Physician [facility] 04-30-2025 13:02-0400 Body temperature 98 [degF] No Primary Care Physician [facility] 04-30-2025 13:02-0400 Diastolic blood pressure 87 mm[Hg] No Primary Care Physician [facility] 04-30-2025 13:02-0400 Heart rate 82 /min No Primary Care Physician [facility] 04-30-2025 13:02-0400 Respiratory rate 14 /min No Primary Care Physician [facility] 04-30-2025 13:02-0400 SaO2% (BldA) [Mass fraction] 98 % No Primary Care Physician [facility] 04-30-2025 13:02-0400 Systolic blood pressure 138 mm[Hg] No Primary Care Physician [facility] 04-12-2024 10:08-0400 Body temperature 97 [degF] Douglas Lord MD Work Phone: [facility] 04-12-2024 10:08-0400 Diastolic blood pressure 78 mm[Hg] Douglas Lord MD Work Phone: [facility] 04-12-2024 10:08-0400 Heart rate 88 /min Douglas Lord MD Work Phone: [facility] [employer] 04-12-2024 10:08-0400 Respiratory rate 16 /min Douglas Lord MD Work Phone: [facility] [employer] 04-12-2024 10:08-0400 Systolic blood pressure 128 mm[Hg] Douglas Lord MD Work Phone: [facility] 04-12-2024 07:00-0400 SaO2% (BldA) [Mass fraction] 100 % Douglas Lord MD Work Phone: [facility] Encounters Encounter Date Encounter Type Care Provider Facility Start: 04-30-2025 End: 04-30-2025 Emergency department patient visit No Primary Care Physician -Emergency Department Work Phone: Start: 10-05-2024 Encounter for genera l adult medical examination without abnormal findings Ed Physician Provider [facility] Start: 09-09-2024 End: 09-09-2024 Emergency department patient visit Ed Physician Provider Facility:[facility] Start: 04-12-2024 End: 04-12-2024 Emergency department patient visit Douglas Lord MD Work Phone: [facility] EMERGENCY DEPT Comment on above: Suicidal ideation (P rimary Dx) Start: 12-22-2018 End: 12-23-2018 Patient encounter procedure [place] ([place]) [facility] Procedures Date Procedure Procedure Detail Performing Clinician Start: 04-12-2024 Drug tst prsmv instr mnt chem analyzers pr date Douglas Lord MD Work Phone: Start: 04-12-2024 Urinalysis complete panel - Urine Douglas Lord MD Work Phone: Start: 04-12-2024 Urnls dip stick/tabl et reagent auto microscopy Douglas Lord MD Work Phone: Start: 04-12-2024 Comprehensive metabo lic panel Douglas Lord MD Work Phone: Start: 04-12-2024 Drug screen analgesi cs non-opioid 1 or 2 Fernando Mcknight MD Work Phone: Start: 04-12-2024 SARS-CoV-2 (COVID-19 ) Ag [Presence] in Respiratory specimen by Rapid immunoassay Douglas Lord MD Work Phone: Plan of Treatment Date Care Activity Detail Author Start: 2060 RSV Immunization aged 60 or older (1 - 1-dose 60+ series) RSV Immunization aged 60 or older (1 - 1-dose 60+ series) [facility] Start: 2050 Zoster Vaccines (1 of 2) Zoster Vaccines (1 of 2) [facility] Start: 04-30-2025 [facility] Start: 07-05-2024 Influenza vaccination Influenza Vaccine (Season Ended) [facility] Start: 07-05-2023 COVID-19 Vaccine ( season) COVID-19 Vaccine ( season) [facility] Start: 2019 DTaP/Tdap/Td Vaccines (1 - Tdap) DTaP/Tdap/Td Vaccines (1 - Tdap) [facility] Start: 2019 Hepatitis B Vaccines (1 of 3 - 19+ 3-dose series) Hepatitis B Vaccines (1 of 3 - 19+ 3-dose series) [facility] Start: 2018 Hepatitis C screening Hepatitis C Screening [facility] Start: 2015 HPV Vaccines (1 - Male 3-dose series) HPV Vaccines (1 - Male 3-dose series) [facility] Start: 2013 Varicella vaccination Varicella Vaccines (1 of 2 - 13+ 2-dose series) [facility] Start: 2012 Depression Screening Depression Screening [facility] Start: 2006 Pneumococcal Vaccine: Pediatrics (0 to 5 Years) and At-Risk Patients (6 to 64 Years) (1 of 2 - PCV) Pneumococcal Vaccine: Pediatrics (0 to 5 Years) and At-Risk Patients (6 to 64 Years) (1 of 2 - PCV) [facility] Start: 2001 MMR Vaccines (1 of 1 - Standard series) MMR Vaccines (1 of 1 - Standard series) [facility] Start: 2000 HIV screening HIV Screening [facility] Start: 2000 Lipid panel Lipid Panel [facility] Patient Education ED Dental Pain ED Dental Cavity [facility] Work Phone: Payers Date Payer Category Payer Self-pay 2024 Private Health Insurance [employer] [id number] 2024-Present [address] [place] [address] Commercial [id number] 2024 Private Health Insurance [id number] Unknown [id number] Unknown [id number] Unknown [id number] Social History Date Type Detail Facility Start: 04-12-2024 Tobacco smoking status [facility] Occasional tobacco smoker [facility] History of tobacco use Cigarette Smoker [facility] Start: 04-12-2024 Tobacco use and exposure Smokeless tobacco non-user [facility] Start: 04-12-2024 Alcohol intake Current drinke r of alcohol (finding) [facility] Start: 04-12-2024 History of Social function [facility] Start: 04-12-2024 Tobacco use panel [facility] Start: 2000 Sex Assigned At Not on file [facility] Start: 04-30-2025 Tobacco smoking status UTIS Tobacco smoking consumption unknown (finding) [facility] Start: 08-27-2019 Tobacco Use Tobacco Use [facility] Start: 2000 Sex Assigned At Male [facility] Clinical Notes 04-12-2024 Lorraine Scott - 04/12/2024 10:07 AM EDTDasonia Scott - 04/12/2024 10:07 AM Ariel Avila - 04/12/2024 8:54 AM Ariel Avila - 04/12/2024 8:49 AM EDAntonietta Santiago - 04/12/2024 7:12 AM EDT Note Date & Type Note Facility 04-12-2024 Emergency department Note Pt is being discharged. He was given his belongings and taken to room 47 to change back into his own clothing. Lorraine Sonia 04/12/24 1008 [facility] 04-12-2024 Emergency department Note Pt is being discharged. He was given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 0.7 0.0 - 0.9 10*3/uL Eosinophils Absolute 0.1 0.0 - 0.5 10*3/uL Basophils Absolute 0.0 0.0 - 0.2 10*3/uL Immature Grans Absolute 0.0 <0.1 10*3/uL Comprehensive metabolic panel Collection Time: 04/12/24 5:55 AM Result Value Ref Range SODIUM 140 135 - 145 mmol/L POTASSIUM 3.3 (L) 3.5 - 5.1 mmol/L CHLORIDE 100 98 - 107 mmol/L CARBON DIOXIDE 33 (H) 22 - 30 mmol/L ANION GAP 7 3 - 13 mmol/L UREA NITROGEN 14 9 - 20 mg/dL CREATININE 0.90 0.66 - 1.25 mg/dL GLUCOSE 78 70 - 100 mg/dL CALCIUM 9.4 8.4 - 10.4 mg/dL AST (SGOT) 35 15 - 46 U/L ALT 54 (H) 0 - 49 U/L ALKALINE PHOSPHATASE 68 38 - 126 U/L ALBUMIN 4.5 3.5 - 5.0 g/dL BILIRUBIN, TOTAL 0.6 0.2 - 1.3 mg/dL TOTAL PROTEIN 7.7 6.3 - 8.2 g/dL eGFR >90.0 >60.0 mL/min/1.73m*2 Ethanol Collection Time: 04/12/24 5:55 AM Result Value Ref Range ETHANOL IN SER/PLAS <0.010 0.000 - 0.010 g/dL SARS-CoV-2 Antigen Collection Time: 04/12/24 5:55 AM Specimen: Nasal; Swab Result Value Ref Range SARS-CoV-2 Antigen Negative Negative Acetaminophen level Collection Time: 04/12/24 5:55 AM Result Value Ref Range ACETAMINOPHEN <10.0 (L) 10.0 - 30.0 ug/mL Salicylate level Collection Time: 04/12/24 5:55 AM Result Value Ref Range SALICYLATES <1.0 <20.0 mg/dL Drug screen panel, emergency Collection Time: 04/12/24 7:09 AM Result Value Ref Range AMPHETAMINE SCREEN Positive BARBITURATES SCREEN Negative BENZODIAZEPINE SCREEN Negative COCAINE METAB. SCREEN Negative METHADONE SCREEN Negative OPIATES SCREEN Negative OXYCODONE SCREEN Negative PHENCYCLIDINE SCREEN Negative Complete Urinalysis Collection Time: 04/12/24 7:09 AM Result Value Ref Range Color, Urine Yellow Lt. Yellow Clarity, Urine Clear Clear pH, Urine 5.5 5.0 - 8.0 pH Leukocytes, Urine Negative Negative Reese/uL Nitrite, Urine Negative Negative Protein, Urine 30 (A) Negative mg/dL Glucose, Urine Normal Normal (<70) mg/dL Bilirubin, Urine Negative Negative mg/dL Ketones, Urine Negative Negative mg/dL Urobilinogen, Urine Normal Normal (0-1) mg/dL Blood, Urine Negative Negative mg/dL RBC, Urine 0-2 0 - 2 /HPF WBC, Urine 0-2 0 - 5 /HPF Squamous Epithelial, Urine 0-2 3 - 5 /HPF Bacteria, Urine Negative Negative /HPF Mucus, Urine Few Negative /LPF Hyaline Casts, Urine Negative Negative /LPF SPECIFIC GRAVITY OF URINE (NUMERIC) 1.035 (H) 1.005 - 1.030 PDMP records have been reviewed ASSESSMENT: Patient is a 23-year-old male with a past medical history significant for methamphetamine and cannabis use who is presenting to the hospital for evaluation of depressive symptoms and recent suicidal ideation. Patient no longer endorsing suicidal ideation. He does not display a high risk of suicide and is future oriented to sobriety. Escalation of care, including admission to inpatient psychiatry, was considered. Pt does NOT require involuntary psychiatric admission at this time. Pt declined voluntary admission. Pt was referred to [facility] and [place]. Diagnostic Impression: Unspecified mood disorder Risk of harm to self: Low Risk -- Risk factors include: Alcohol or other substance abuse, Depression, History of trauma or abuse , Lack of outpatient care , Loss (relational, social, occupational, financial) , and Psychosocial stressors including problems with girlfriend, homelessness, work concerns Protective factors include:Denies current suicidal ideation, Denies history of suicide attempts , Future-oriented talk , Willingness to seek help and support , Access to a variety of clinical interventions , Interpersonal relationships and supports, e.g., family, friends, peers, community , and Restricted access to firearms or other lethal means of suicide Risk of harm to others: low - Current/history of alcohol or other substance abuse, especially PCP or stimulants RECOMMENDATIONS: Disposition: Home with follow-up at [facility] or [place] Management of the patient was discussed with Dr. Wynne, ED provider. Workup: None to be ordered by psychiatry Medications: None to be ordered by psychiatry Pt seen and discussed with attending psychiatrist, Dr. Wynne, who agrees with above recommendations. documented in this encounter [facility] 04-12-2024 Emergency department Note Providers in room speaking with pt. Michelle Avila 04/12/24 0854 [facility] 04-12-2024 Emergency department Note Pt using the bathroom per request Michelle Avila 04/12/24 0849 [facility] 04-12-2024 Emergency department Note Breakfast tray given to pt. Michelle Avila 04/12/24 0824 [facility] 04-12-2024 Emergency department Note Provider in room speaking with pt Michelle Avila 04/12/24 0743 [facility] 04-12-2024 [facility] 04-12-2024 Emergency department Note Patient had urine collected and sent to lab. Juan Ramon Madden RN 04/12/24 0710 [facility] 04-12-2024 Emergency department Note Isaiah Gomez in obtaining vitals [facility] 04/12/24 0659 [facility] 04-12-2024 Note NOTE: This result is for medical treatment only. Analysis performed using non-forensic procedures. [facility] 04-12-[address] Mcknight in speaking w/ pt [facility] 04/12/24 0623 [facility] 04-12-2024 Emergency department Note Wanded by PS 2 bags [facility] 04/12/24 0603 [facility] 04-12-2024 Emergency department Note Pt [facility] 2 gowns[facility] 04-12-2024 Emergency department Note Pt walked back to ED BH unit by JANESSA Tenorio In 47 for intake process Calm and cooperative. Ning Santiago 04/12/24 0547 [facility] 04-12-2024 Emergency department Triage note Patient presents to the ED via triage by self. Patient states that he has been struggling with anxiety, depression, and suicidal ideation. Patient states that he has been having a rough time recently. Patient states that he was recently fired and he was kicked out of his dads home. Patient currently living out of his vehicle. Patient states that he has had vivid images about suicide. Patient also states that he was walking down train tracks at one time and thought about jumping but didn't. Patient states that he lost his brother in law in October and felt like he pulled him back off of the train tracks. Patient calm and cooperative throughout triage process. [facility] 04-12-2024 Physician Emergency department Note EMERGENCY DEPARTMENT ENCOUNTER Pt Name: Keyana Pham Birthdate 2000 Date of evaluation: 04/12/2024 ED Provider: Fernando Mcknight II, MD CHIEF COMPLAINT Chief Complaint Patient presents with Psychiatric Evaluation HISTORY OF PRESENT ILLNESS (Location/Symptom, Timing/Onset, Context/Setting, Quality, Duration, Modifying Factors, Severity) Note limiting factors. I wore appropriate PPE for the entirety of this encounter. HPI Keyana Pham is a 23 y.o. who presents to the emergency department with concerns for suicidal ideation. Patient details multiple psychosocial conflicts with his ex-girlfriend and his father. Patient states that he has been having intensifying thoughts of hurting himself over the past couple weeks. He states that he has thought of various ways to do this including walking onto the railroad tracks as well as driving his truck off the road. Patient denies any habitual alcohol use but states that he uses amphetamines multiple times within the past 24 hours. Patient states that he has been having nonspecific auditory hallucinations. He does not take any psychiatric medications. Nursing Notes were reviewed. Limitations to history: Outside historians: REVIEW OF SYSTEMS Review of Systems Pertinent positives and negatives as per HPI. PAST MEDICAL HISTORY History reviewed. No pertinent past medical history. SURGICAL HISTORY History reviewed. No pertinent surgical history. CURRENT MEDICATIONS Previous Medications No medications on file ALLERGIES Patient has no known allergies. FAMILY HISTORY No family history on file. SOCIAL HISTORY Social History Socioeconomic History Marital status: Single Tobacco Use Smoking status: Some Days Types: Cigarettes Smokeless tobacco: Never Vaping Use Vaping Use: Every day Substance and Sexual Activity Alcohol use: Yes Drug use: Yes Types: Methamphetamines, Marijuana SCREENINGS PHYSICAL EXAM ED Triage Vitals [04/12/24 0548] Temp Heart Rate Resp BP 36.8 C (98.3 F) 105 18 131/88 SpO2 Temp Source Heart Rate Source Patient Position 100 % Temporal Monitor -- BP Location FiO2 (%) -- -- Physical Exam Vitals and nursing note reviewed. Constitutional: General: He is not in acute distress. Appearance: He is well-developed. HENT: Head: Normocephalic and atraumatic. Eyes: Conjunctiva/sclera: Conjunctivae normal. Cardiovascular: Rate and Rhythm: Normal rate and regular rhythm. Heart sounds: No murmur heard. Pulmonary: Effort: Pulmonary effort is normal. No respiratory distress. Breath sounds: Normal breath sounds. Abdominal: Palpations: Abdomen is soft. Tenderness: There is no abdominal tenderness. Musculoskeletal: General: No swelling. Cervical back: Neck supple. Skin: General: Skin is warm and dry. Capillary Refill: Capillary refill takes less than 2 seconds. Neurological: Mental Status: He is alert. Psychiatric: Mood and Affect: Mood normal. DIAGNOSTIC RESULTS RADIOLOGY (Per Emergency Physician): Interpretation per the Radiologist below, if available at the time of this note: No orders to display LABS: Labs Reviewed COMPREHENSIVE METABOLIC PANEL - Abnormal Result Value SODIUM 140 POTASSIUM 3.3 (*) CHLORIDE 100 CARBON DIOXIDE 33 (*) ANION GAP 7 UREA NITROGEN 14 CREATININE 0.90 GLUCOSE 78 CALCIUM 9.4 AST (SGOT) 35 ALT 54 (*) ALKALINE PHOSPHATASE 68 ALBUMIN 4.5 BILIRUBIN, TOTAL 0.6 TOTAL PROTEIN 7.7 eGFR >90.0 COMPLETE URINALYSIS - Abnormal Color, Urine Yellow Clarity, Urine Clear pH, Urine 5.5 Leukocytes, Urine Negative Nitrite, Urine Negative Protein, Urine 30 (*) Glucose, Urine Normal Bilirubin, Urine Negative Ketones, Urine Negative Urobilinogen, Urine Normal Blood, Urine Negative RBC, Urine 0-2 WBC, Urine 0-2 Squamous Epithelial, Urine 0-2 Bacteria, Urine Negative Mucus, Urine Few Hyaline Casts, Urine Negative SPECIFIC GRAVITY OF URINE (NUMERIC) 1.035 (*) ACETAMINOPHEN LEVEL - Abnormal ACETAMINOPHEN <10.0 (*) SARS-COV-2 ANTIGEN - Normal SARS-CoV-2 Antigen Negative CBC WITH AUTO DIFFERENTIAL - Normal Auto WBC 9.3 RBC 4.99 Hemoglobin 14.5 Hematocrit 43.5 MCV 87.2 MCH 29.1 MCHC 33.3 RDW 13.0 Platelets 209 MPV 11.4 nRBC 0.0 Neutrophils Relative 54.5 Lymphocytes Relative 36.9 Monocytes Relative 7.1 Eosinophils Relative 0.8 Basophils Relative 0.4 Immature Grans % 0.3 Neutrophils Absolute 5.1 Lymphocytes Absolute 3.4 Monocytes Absolute 0.7 Eosinophils Absolute 0.1 Basophils Absolute 0.0 Immature Grans Absolute 0.0 ETHANOL - Normal ETHANOL IN SER/PLAS <0.010 Narrative: NOTE: This result is for medical treatment only. Analysis performed using non-forensic procedures. SALICYLATE - Normal SALICYLATES <1.0 COMPLETE URINALYSIS WITH REFLEX TO CULTURE Narrative: The following orders were created for panel order Complete Urinalysis with reflex to Culture. Procedure Abnormality Status --------- ------ Complete Urinalysis[[id number]] Abnormal Final result Please view results for these tests on the individual orders. DRUGS OF ABUSE All other labs were within normal range or not returned as of this dictation. EMERGENCY DEPARTMENT COURSE and DIFFERENTIAL DIAGNOSIS/MDM: Vitals: Vitals: 04/12/24 0548 04/12/24 0700 BP: 131/88 135/83 Pulse: 105 102 Resp: 18 16 Temp: 36.8 C (98.3 F) 36.6 C (97.8 F) TempSrc: Temporal Temporal SpO2: 100% 100% 23-year-old male presenting to the emergency department for evaluation of suicidal ideation. Patient has plan but no intent. Patient was evaluated by inpatient psychiatric provider, who deemed that he was safe to discharge home and did not require inpatient psychiatric hospitalization. Patient was able to contract for safety and provided close outpatient follow-up. Notably, his urine toxicology screen was positive for amphetamines. Patient was medically cleared for the aforementioned in the emergency department. Patient to discharge home. Diagnoses as of 04/12/24 1000 Suicidal ideation External records reviewed: Diagnostics interpreted by me: Discussions with other clinicians: Chronic conditions impacting care: Social determinants of health affecting care: ED Medications managed: Medications - No data to display Prescription drugs considered: PROCEDURES: Unless otherwise noted below, none Procedures FINAL IMPRESSION No diagnosis found. DISPOSITION PATIENT REFERRED TO: No follow-up provider specified. DISCHARGE MEDICATIONS: New Prescriptions No medications on file (Comment: Please note this report has been produced using speech recognition software and may contain errors related to that system including errors in grammar, punctuation, and spelling, as well as words and phrases that may be inappropriate. If there are any questions or concerns please feel free to contact the dictating provider for clarification.) Fernando Mcknight II, MD (electronically signed) Emergency Medicine Provider Fernando Mcknight II, MD Resident 04/12/24 1000 [facility] 04-12-2024 Physician Emergency department Note Emergency Department Encounter [facility] EMERGENCY DEPT Patient: Keyana Pham : 2000 Date of Evaluation: 04/12/2024 ED Supervising Physician: Douglas Lord MD I personally evaluated Keyana Pham and made/approved the management plan and take responsibility for the patient management. This will serve as my Supervisory note and shared attestation. I did perform a substantive portion of the visit including all aspects of the Medical Decision Making. I wore appropriate PPE for the entirety of this encounter. In brief, Keyana Pham is a 23 y.o. that presents to the emergency department suicidal ideation not feeling better admits to methamphetamine use no medical complaints Focused exam: Patient is calm cooperative forthcoming with information denies suicidal ideation expresses need to see a psychiatrist and likely be on meds vital stable Brief ED course/MDM: Patient presenting with suicidal ideation vitals are stable has no medical complaints. Patient is very forthcoming with information admits to walking on train tracks a few weeks ago contemplating suicide he says he is not suicidal now but understands that he likely needs to see a psychiatrist again on medications preference would be to go home and follow-up as an outpatient with possible with psychiatry evaluate if they agree feel relatively comfortable with discharge close outpatient follow-up with his ex-girlfriend who can come pick him up and take him to his car where he is living out of currently Diagnostics interpreted by me: I personally discussed the patient's management with other clinicians: All diagnostic, treatment, and disposition decisions were made by myself in conjunction with the Resident. I also supervised mckeon portions of any procedures performed by the Resident. For all further details of the patient's emergency department visit, please see their documentation. (Comment: Please note this report has been produced using speech recognition software and may contain errors related to that system including errors in grammar, punctuation, and spelling, as well as words and phrases that may be inappropriate. If there are any questions or concerns please feel free to contact the dictating provider for clarification.) Douglas Lord MD [facility] Douglas Lord MD 04/12/24 0810 [facility] [employer] Work Phone: Evaluation note Diagnosis Suicidal ideation- Primary [facility] this [facility] note[facility] information availableWM[facility] Work Phone: Reason for referral (narrative)No reason for referral information availableWMarymount Hospital Work Phone: Summary Purpose Family History No Family History Records FoundNo Family History Records FoundNo Family History Records Found Advance Directives Advance Directive Response Recorded Date/ Time Do you have a Healthcare Power of Trim Operator? No April 30, 2025 1:06pm Chief Complaint and Reason for Visit Chief Complaint Admit Date DENTAL April 30, 2025 1:02 pm Additional Source Comments (unrecognized sect ion and content) No Status Records FoundNo Status Records FoundNo Status Records Found INFORMATION SOURCE (unrecogn ized section and content) DATE CREATED AUTHOR 12/24/2018 [facility] DATE CREATED AUTHOR AUTHOR'S ORGANIZ ATION 04/12/2024 [facility] DATE CREATED AUTHOR AUTHOR'S ORGANIZ ATION 10/05/2024 [facility] Reason for Visit (unrecogniz ed section and content) Reason Comments Psychiatric Evaluation Care Teams (unrecognized sec tion and content) Team Status: Active Member Role/Relationship Status Dates No Primary Care Physician Primary Care Provider Active Team Status: Inactive Member Role/Relationship Status Dates No Primary Care Physician Primary Care Provider Active Start: April 30, 2025 End: April 30, 2025 Dr. Ervin Rodríguez , DO Emergency Provider Active Start: April 30, 2025 End: April 30, 2025 Goals (unrecognized section and content) Goals may be documented in a n alternate section FOR RECORDS PERTAINING TO PATIENTS WHO ARE OR HAVE BEEN ENROLLED IN A CHEMICAL DEPENDENCY/SUBSTANCEABUSE PROGRAM, SOME INFORMATION MAY BE OMITTED. This clinical summary was aggregated from multiple sources. Caution should be exercised in using it in the provision of clinical care. This summary normalizes information from multiple sources, and as a consequence, information in this document may materially change the coding, format and clinical context of patient data. In addition, data may be omitted in some cases. CLINICAL DECISIONS SHOULD BE BASED ON THE PRIMARY CLINICAL RECORDS. [employer] provides no warranty or guarantee of the accuracy or completeness of information in this document.
== END 2025-04-30 13:54 | disposition home or self-care (01) ==
PROVIDERS: Emergency Provider Emergency Medicine; Visit Provider Emergency Medicine
DX: K02.9 Dental caries, unspecified (principal); K08.89 Other specified disorders of teeth and supporting structures
CPT/HCPCS: 99283

== ENCOUNTER 2025-08-13 09:07 | Emergency (ER) | payer MEDICAID, SELFPAY ==
[2025-08-13 09:07] VITALS: BP 135/84; PULSE 83; RESP 18; TEMP 36.6; O2SAT 100; BMI 29.4
--- NOTE | 2025-08-13 09:33 | ED.VIS.BACK ---
HPI History of Present Illness Chief Complaint: Back Narrative Narrative: Patient is a 24-year-old male presenting to the emergency department for right sided back pain that radiates down the back of his right leg. Patient has no significant past medical history. States he has had sciatica before. Reports that he works in [employer]. He was at work yesterday and twisted while on a ladder and had some lower right sided back pain. However last night while he was trying to sleep he developed pain down the back of his right leg. He denies fever, chills, neck pain. Denies any trauma or falls. Denies any saddle anesthesia, bowel or bladder retention or incontinence, IV drug use, diabetes, immunocompromise status, cancer history or recent weight loss. Denies any numbness or weakness in his lower extremities. Took ibuprofen last night for pain. [facility] Medical History Pain, dental Home Medications ?Medication ?Instructions ?Recorded ?Last Taken ?Type hydrocodone-acetaminophen 5-325mg 1 tab PO Q6H PRN PRN Pain 3 days 04/30/25 Unknown Rx 5mg-325mg #10 TABLETS penicillin V potassium 500 mg 500 mg PO 4X/DAY #40 tabs 04/30/25 Unknown Rx tablet cyclobenzaprine 10 mg tablet 10 mg PO TID PRN Muscle Spasm #20 08/13/25 Unknown Rx TABLETS lidocaine 5 % topical patch 1 patch topical DAILY #15 ea 08/13/25 Unknown Rx (Lidoderm) prednisone 20 mg tablet 40 mg (2 x 20 mg) PO DAILY 5 days 08/13/25 Unknown Rx #10 tabs Allergy/AdvReac Type Severity Reaction Status Date / Time No Known Allergies Allergy Verified 08/13/25 09:07 Social History Smoking Status: Never smoker ROS ROS ED ROS Narrative see HPI EXAM Physical Exam Narrative Exam Narrative: Vital signs: Reviewed General: Alert and orientedx3. No acute distress HEENT: Head is normocephalic and atraumatic, sinuses nontender, pupils equal round and reactive. Nares are patent. Oropharynx and throat exams normal. Neck: Supple without lymphadenopathy nontender Cardiovascular: Regular rate and rhythm, no murmurs. No rubs or gallops. Normal S1 and S2 Respiratory: Clear to auscultation bilaterally. No wheezes, rales, rhonchi Abdominal: Soft and nontender. Normal bowel sounds. No guarding or rebound. Nonsurgical abdomen Extremities: No midline cervical, thoracic or lumbar spinal tenderness to palpation. No step-offs or deformities. There is right lower lumbar paraspinal tenderness to palpation. There is no erythema, warmth, fluctuance of the back. 5 out of 5 strength in bilateral lower extremities. Sensation intact in bilateral lower extremities. Patient able to flex and extend at hip and knee without difficulty. DP and PT pulses intact bilaterally. Skin: No rash or redness. Neurological: Cranial nerves II through XII are grossly intact. Normal strength and sensation. Normal cerebellar function The rest of the physical exam is unremarkable Const Vital Signs: 08/13/25 09:07 Temperature 97.8 F Temperature Source Oral Pulse Rate 83 Respiratory Rate 18 Blood Pressure 135/84 H Blood Pressure Mean 101 Pulse Ox 100 Oxygen Delivery Method Room Air MDM MDM MDM Narrative Medical decision making narrative: Patient is a 24-year-old male presenting to the emergency department for back pain that started yesterday. Patient was seen and examined. Vitals are stable. Patient resting bed comfortably no acute distress. Patient has no red flag back pain signs as discussed in the HPI. I do not think this is cauda equina, spinal epidural abscess. He had no trauma or falls to his back. Do not think this is a fracture of his vertebrae causing spinal compression. No indication for CT imaging of his back. HPI and physical exam are consistent with sciatica. Will give Toradol and Flexeril here. Will prescribe a steroid burst for home. Will also prescribe Flexeril and lidocaine patches for home. He was able to ambulate in the emergency department without difficulty. He was reevaluated after the medications were given and he notes moderate improvement in his symptoms. He does not have a primary care doctor, a referral was given. This was discussed with patient and he feels comfortable with the plan. Patient discharged from the Emergency Department. I do not feel that the patient's evaluation reveals any acute reason for admission at this time. I instructed them to either follow-up with their primary care physician or promptly return to the Emergency Department for reevaluation should symptoms worsen or new symptoms develop. I explained what symptoms would indicate the need to return to the emergency department. Shared decision making was used. The patient voiced understanding of the treatment plan and is agreeable with it. Clinical impression: Back pain Sciatica History & Record Review Discussion w/independent historian: Patient Discharge Plan Triage Chief Complaint: Back ED Provider: Ania Ruiz Dx/Rx/DC Orders Clinical Impression: Back pain, Sciatica Instructions: ED Back Sprain/Strain, ED Sciatica Prescriptions: New lidocaine [Lidoderm] 5 % adhesive patch,medicated 1 patch topical DAILY Qty: 15 0RF Rx Instructions: leave on most painful area for up to 12 hrs cyclobenzaprine 10 mg tablet 10 mg PO TID PRN (Reason: Muscle Spasm) Qty: 20 0RF prednisone 20 mg tablet 40 mg PO DAILY 5 Days Qty: 10 0RF No Action hydrocodone-acetaminophen 5-325 mg tablet 1 tab PO Q6H PRN PRN (Reason: Pain) 3 Days Qty: 10 0RF penicillin V potassium 500 mg tablet 500 mg PO 4X/DAY Qty: 40 0RF Primary Care Provider: Care Physician,No Primary Referrals: Karen Ashton MD [Med Staff - [facility] Designer, Internal Medicine] - As soon as possible Care Physician,No Primary [Primary Care Provider, Medical] Activity Restrictions/Additional Instructions: Over the next 5 to 7 days take NSAIDs which include Motrin, ibuprofen, Advil or Aleve scheduled throughout the day to help with your pain and inflammation. Apply the lidocaine patch to your right lower back where you are having the pain and remove after 12 hours. Do not leave it on longer than this. Take the Flexeril every 6-8 hours as needed for muscle spasms. Do not take this while driving or operating heavy machinery as this causes you to be tired. Take the steroid 2 pills daily for 5 days. Follow-up with the primary care doctor that I provided to you. Your evaluation in the Emergency Department did not reveal any acute reason for admission. However, I want to emphasize that you may be early in the course of a disease process or illness even if it is not present. For this reason you should follow-up within 24 hours for reevaluation with either your primary care physician or if necessary back here in the Emergency Department. You should return to the Emergency Department immediately if your symptoms worsen or new symptoms develop. Print Language: Mongolian Disposition Disposition: Home, Self Care
[2025-08-13] MEDS: Ketorolac 30 MG/ML Syringe IM (09:52)
[2025-08-13 10:58] VITALS: BP 129/61; PULSE 89; RESP 16; TEMP 37.1; O2SAT 99
== END 2025-08-13 11:00 | disposition home or self-care (01) ==
PROVIDERS: Emergency Provider Student in an Organized Health Care Education/Training Program; Visit Provider Student in an Organized Health Care Education/Training Program
DX: M54.31 Sciatica, right side (principal); X50.9XXA Other and unspecified overexertion or strenuous movements or postures, initial encounter; Y93.89 Activity, other specified; Y92.89 Other specified places as the place of occurrence of the external cause
CPT/HCPCS: 96372; 99282

== ENCOUNTER 2025-10-11 23:43 | Emergency (ER) | payer MEDICAID, SELFPAY ==
[2025-10-11 23:43] VITALS: BP 150/85; PULSE 125; RESP 20; TEMP 36; O2SAT 100; BMI 32.7
[2025-10-12] MEDS: Lidocaine 2% Viscous15 ML UDC 15 ML PO (00:10)
--- OUTSIDE RECORDS SUMMARY | 2025-10-12 00:13 | XMS RPT_ITS | CCD ---
Author Organization [facility] Inform ion Partnership [facility] Care Team Providers Care Gas Line Repairer Name Role Phone KELLY BARBOZA (DANIKA) Referring Unavailable Unavailable Primary Care Provider UnavailDOUGLAS Bates Attending Unavailable Care Physician, No Primary Primary Care Provider Unavailable Dr. Ervin Rodríguez DO Emergency Provider [phone] Care Physician, No Primary Primary Care Unava ilable Ania Ruiz Attending Unavailable Ervin Rodríguez Attending Unavailable Care Physician, No Primary Primary Care Unava ilable Provider, Ed Physician Attending Unavailab le Care Physician, No Primary Primary Care Unava ilable Care Physician, No Primary Primary Care Physicia n Dr. Ania Hermosillo MD Attending Physician Dr. Ania Dumas MD Emergency Department Physici an Unavailable Medications Current Medications Medication Drug Class(es) Dates Sig (Normalized) Sig (Original) acetaminophen 325 mg / HYDROcodone bitartrate 5 mg oral tablet (2 sources) Opioid Agonist Start: 04-30-2025 take 1 tablet by mouth every six hours as needed for pain cyclobenzaprine hydrochloride 10 mg oral tablet (1 source) Muscle Relaxant Start: 08-13-2025 take 1 tablet by mouth three times daily as needed for muscle spasms lidocaine 0.05 mg/mg medicated patch (1 source) Antiarrhythmic, Amide Local Anesthetic Start: 08-13-2025 penicillin v potassium 500 mg oral tablet (2 sources) Start: 04-30-2025 take 1 tablet by mouth four times daily predniSONE 20 mg oral tablet (1 source) Start: 08-13-2025 take 2 tablets by mouth once daily Problems Active Problems Problem Classification Problem Date Documented Da te Episodic/Chronic Abdominal pain (2 sources) Right upper quadrant pain; Translations: [Right upper quadrant pain] 08-29-2019 Episodic Spondylosis; intervertebral disc disorders; other back problems (3 sources) Sciatica, right side; Translations: [Sciatica] Onset: 08-19-2025 08-21-2025 Episodic Suicide and intentional self-inflicted injury (4 sources) Suicidal thoughts; Translations: [Suicidal ideations] Onset: 04-12-2024 04-12-2024 Episodic Past or Other Problems Problem Classification Problem Date Documented Da te Episodic/Chronic Disorders of teeth and jaw (5 sources) Dental caries; Translations: [Dental caries, unspecified] Onset: 05-05-2025 04-30-2025 Episodic Results Test Name Value Interpretation Reference Range Facility Emergency Department Summary on 08-13-2025 Emergency Department Summary [facility] Medical Records Department [address] [place] [address] Emergency Department Summary 08/13/25 MR#: [id number] Acct: [id number] Name: KEYANA PHAM Rep #: [id number] : 2000 24 From: Ania Ruiz MD PCP: Care Physician,No Primary Status:[facility] ER Location: ED HPI History of Present Illness Chief Complaint: Back Narrative Narrative: Patient is a 24-year-old male presenting to the emergency department for right sided back pain that radiates down the back of his right leg. Patient has no significant past medical history. States he has had sciatica before. Reports that he works in [employer]. He was at work yesterday and twisted while on a ladder and had some lower right sided back pain. However last night while he was trying to sleep he developed pain down the back of his right leg. He denies fever, chills, neck pain. Denies any trauma or falls. Denies any saddle anesthesia, bowel or bladder retention or incontinence, IV drug use, diabetes, immunocompromise status, cancer history or recent weight loss. Denies any numbness or weakness in his lower extremities. Took ibuprofen last night for pain. [facility] Medical History Pain, dental Home Medications ???Medication ???Instructions ???Recorded ???Last Taken ???Type hydrocodone-acetamin ophen 5-325mg 1 tab PO Q6H PRN PRN Pain 3 days 04/30/25 Unknown Rx 5mg-325mg #10 TABLETS penicillin V potassium 500 mg 500 mg PO 4X/DAY #40 tabs 04/30/25 Unknown Rx tablet cyclobenzaprine 10 mg tablet 10 mg PO TID PRN Muscle Spasm #20 08/13/25 Unknown Rx TABLETS lidocaine 5 % topical patch 1 patch topical DAILY #15 ea 08/13 Unknown Rx (Lidoderm) prednisone 20 mg tablet 40 mg (2 x 20 mg) PO DAILY 5 days 08/13/25 Unknown Rx #10 tabs Allergy/AdvReac Type Severity Reaction Status Date / Time No Known Allergies Allergy Verified 08/13/25 09:07 Social History Smoking Status: Never smoker ROS ROS ED ROS Narrative see HPI EXAM Physical Exam Narrative Exam Narrative: Vital signs: Reviewed General: Alert and orientedx3. No acute distress HEENT: Head is normocephalic and atraumatic, sinuses nontender, pupils equal round and reactive. Nares are patent. Oropharynx and throat exams normal. Neck: Supple without lymphadenopathy nontender Cardiovascular: Regular rate and rhythm, no murmurs. No rubs or gallops. Normal S1 and S2 Respiratory: Clear to auscultation bilaterally. No wheezes, rales, rhonchi Abdominal: Soft and nontender. Normal bowel sounds. No guarding or rebound. Nonsurgical abdomen Extremities: No midline cervical, thoracic or lumbar spinal tenderness to palpation. No step-offs or deformities. There is right lower lumbar paraspinal tenderness to palpation. There is no erythema, warmth, fluctuance of the back. 5 out of 5 strength in bilateral lower extremities. Sensation intact in bilateral lower extremities. Patient able to flex and extend at hip and knee without difficulty. DP and PT pulses intact bilaterally. Skin: No rash or redness. Neurological: Cranial nerves II through XII are grossly intact. Normal strength and sensation. Normal cerebellar function The rest of the physical exam is unremarkable Const Vital Signs: 08/13/25 09:07 Temperature 97.8 F Temperature Source Oral Pulse Rate 83 Respiratory Rate 18 Blood Pressure 135/84 H Blood Pressure Mean 101 Pulse Ox 100 Oxygen Delivery Method Room Air MDM MDM MDM Narrative Medical decision making narrative: Patient is a 24-year-old male presenting to the emergency department for back pain that started yesterday. Patient was seen and examined. Vitals are stable. Patient resting bed comfortably no acute distress. Patient has no red flag back pain signs as discussed in the HPI. I do not think this is cauda equina, spinal epidural abscess. He had no trauma or falls to his back. Do not think this is a fracture of his vertebrae causing spinal compression. No indication for CT imaging of his back. HPI and physical exam are consistent with sciatica. Will give Toradol and Flexeril here. Will prescribe a steroid burst for home. Will also prescribe Flexeril and lidocaine patches for home. He was able to ambulate in the emergency department without difficulty. He was reevaluated after the medications were given and he notes moderate improvement in his symptoms. He does not have a primary care doctor, a referral was given. This was discussed with patient and he feels comfortable with the plan. Patient discharged from the Emergency Department. I do not feel that the patient's evaluation reveals any acute reason for admission at this time. I instructed them to either follow- (more content not included)... Normal [facility] Emergency Department Summary on 04-30-2025 Emergency Department Summary [facility] Medical Records Department [address] [place] [address] Emergency Department Summary 04/30/25 MR#: [id number] Acct: [id number] Name: KEYANA PHAM Rep #: [id number] : 2000 24 From: Ervin Rodríguez DO PCP: Care Physician,No Primary Status:DEP ER Location: ED HPI History of Present Illness Chief Complaint: Dental Informant: patient Onset/Context/Timing Onset: Yesterday Context: Gradual Onset Timing: Continuous Quality: Stabbing, cramping, and throbbing Location: Right upper and lower molars Worsened by: Cold, eating, and chewing Relieved by: - (Nothing) Associated Symptoms Assocated Symptom - Dental: fever, jaw swelling and cold sensitivity; Negative for face swelling or hot sensitivity Narrative Narrative: Patient presents with dental pain that began yesterday. Patient describes it as stabbing, cramping, and throbbing. Patient states it is over the right upper and lower molars. Patient states it is worse with eating and chewing. Patient also admits to cold sensitivity. Patient admits to subjective fever but denies taking his temperature. Patient admits to some swelling over the upper and lower molar area. Patient denies any difficulty breathing or difficulty swallowing. Patient admits to some nausea due to the pain. [facility] Medical History Pain, dental Home Medications ???Medication ???Instructions ???Recorded ???Last Taken ???Type hydrocodone-acetamin ophen 5-325mg 1 tab PO Q6H PRN PRN Pain 3 days 04/30/25 Unknown Rx 5mg-325mg #10 TABLETS penicillin V potassium 500 mg 500 mg PO 4X/DAY #40 tabs 04/30/25 Unknown Rx tablet Allergy/AdvReac Type Severity Reaction Status Date / Time No Known Allergies Allergy Verified 04/30/25 13:02 Surgical History no surgical history no surgical history Social History Smoking Status: Unknown if ever smoked ROS ROS ED Constitutional Constitutional ED: Denies chills or fever(s) Eyes Eyes: Denies blurry vision or change in vision ENT ENT ED: Denies rhinorrhea or sore throat Cardiovascular Cardiovascular: Denies chest pain or palpitations Respiratory/Chest Respiratory/Chest: Denies cough or dyspnea Gastrointestinal Gastrointestinal: Reports nausea; Denies vomiting Genitourinary Genitourinary ED: Denies dysuria or hematuria Musculoskeletal Musculoskeletal: Reports neck pain; Denies back pain Integumentary Denies abscess or rash Neurologic Neurologic: Reports headache(s); Denies weakness Allergic/Immunologic Allergic/Immunologic ED: Denies mouth swelling or urticaria EXAM Physical Exam Const Vital Signs: 04/30/25 13:02 Temperature 98 F Temperature Source Temporal Pulse Rate 82 Respiratory Rate 14 Blood Pressure 138/87 H Blood Pressure Mean 104 Pulse Ox 98 Oxygen Delivery Method Room Air Positive well nourished and well developed General Appearance ED: well developed and NAD HEENT HEENT Narrative: There is a large dental carry noted over the right upper first molar. There is gingival edema around this tooth. There is no discharge or drainage. There is no fluctuance. There is no evidence of any abscess. There is tenderness to percussion over the lower molars as well. Oropharynx is clear. Airway is patent. Neck is supple. Trachea is midline. There is no sublingual edema. There is no evidence of Jasbir's angina. Teeth and Gingiva: caries and gingiva abnormal Positive for gingival edema Throat: posterior oropharynx normal Neck supple and no JVD General: Negative for anterior neck swelling, tenderness or submandibular swelling Neuro oriented x3, CN's II-XII intact bilaterally, moves all extremities, no focal motor deficits and no sensory deficits noted Sensorium / Orientation: alert Motor Exam: strength 5/5 throughout Psych mental status grossly normal MDM MDM MDM Narrative Medical decision making narrative: Patient was advised that he most likely has infected dental caries. Patient was given a dose of Pen-Vee K here. Patient was given a prescription for Pen-Vee K. Patient was given a dose of Dodge here. Patient was given a prescription for short course of Dodge. Patient was instructed to follow-up with a dentist in 5 to 7 days. Patient was instructed to return if worse in any way. Patient understood and was agreeable with the plan. All questions were answered. Discharge Plan Triage Chief Complaint: Dental ED Provider: Ervin Rodríguez Dx/Rx/DC Orders Clinical Impression: Infected dental caries, Odontalgia Instructions: ED Dental Pain, ED Dental Cavity Prescriptions: New hydrocodone-acetamin ophen 5-325 mg tablet 1 tab PO Q6H PRN PRN (Reason: Pain) 3 (more content not included)... Normal [facility] ACETAMINOPHEN LEVELon 2023 Acetaminophen [Mass/Vol] ug/mL Low 10.0-30.0 [facility] Comment on above: Performed By: #### L AB43, LAB34, LAB46, LAB17 ####Nematologist: ISABEL VERAS ([id number])[facility] ([address] Acetaminophen [Mass/Vol]on 0 04-12-2024 Interpretation and review of laboratory results Abnormal [facility] CBC W Auto Differential pane l (Bld)on 04-12-2024 Basophils (Bld) [#/Vol] 0.0 10*3/uL 0.0 - 0.2 10*3/uL [facility] Basophils/100 WBC (Bld) 0.4 % 0.0 - 2.0 % [facility] Eosinophils (Bld) [#/Vol] 0.1 10*3/uL 0. 0 - 0.5 10*3/uL [facility] Eosinophils/100 WBC (Bld) 0.8 % 0.0 - 6.0 % [facility] Erythrocyte distribution width (RBC) [Ratio] 13.0 % 11.5 - 15.0 % [facility] Hematocrit (Bld) [Volume fraction] 43.5 % 40.0 - 52.0 % [facility] Hemoglobin (Bld) [Mass/Vol] 14.5 g/dL 13.0 - 18.0 g/dL [facility] Immature granulocytes (Bld) [#/Vol] 0.0 10*3/uL NINF - 0.1 10*3/uL [facility] Immature granulocytes/100 WBC (Bld) 0.3 % 0.0 - 2.0 % [facility] Interpretation and review of laboratory results Normal [facility] th Lymphocytes (Bld) [#/Vol] 3.4 10*3/uL 1. 0 - 4.3 10*3/uL [facility] Lymphocytes/100 WBC (Bld) 36.9 % 15.0 - 45. 0 % [facility] MCH (RBC) [Entitic mass] 29.1 pg 26. 0 - 34.0 pg [facility] MCHC (RBC) [Mass/Vol] 33.3 % 30.5 - 36.0 % [facility] MCV (RBC) [Entitic vol] 87.2 fL 77.0 - 99.0 fL [facility] Monocytes (Bld) [#/Vol] 0.7 10*3/uL 0.0 - 0.9 10*3/uL [facility] Monocytes/100 WBC (Bld) 7.1 % 5.0 - 13.0 % [facility] Neutrophils (Bld) [#/Vol] 5.1 10*3/uL 1. 8 - 7.5 10*3/uL [facility] Neutrophils/100 WBC (Bld) 54.5 % 38.0 - 82. 0 % [facility] Nucleated RBC/100 WBC (Bld) [Ratio] 0.0 % [facility] Platelet mean volume (Bld) [Entitic vol] 11.4 fL 9.0 - 12.7 fL [facility] Platelets (Bld) [#/Vol] 209 10*3/uL 140 - 440 10*3/uL [facility] RBC (Bld) [#/Vol] 4.99 10*6/uL 4.40 - 5.9 0 10*6/uL [facility] WBC (Bld) [#/Vol] 9.3 10*3/uL 3.6 - 10.7 10*3/uL [facility] CBC WITH AUTO DIFFERENTIALon 04-12-2024 Basophils (Bld) [#/Vol] 0.0 10*3/uL Normal 0.0-0.2 [facility] Comment on above: Performed By: #### L [id number] ####Nematologist: ISABEL VERAS ([id number])[facility] ([facility])[address] [place] [address] Basophils/100 WBC (Bld) 0.4 % Normal 0.0-2.0 [facility] Comment on above: Performed By: #### L [id number] ####Nematologist: ISABEL VERAS ([id number])[facility])[address] [place] [address] Eosinophils (Bld) [#/Vol] 0.1 10*3/uL Normal 0.0-0.5 [facility] Comment on above: Performed By: #### L [id number] ####Nematologist: ISABEL VERAS ([id number])[facility])[address] [place] [address] Eosinophils/100 WBC (Bld) 0.8 % Normal 0.0-6.0 [facility] Comment on above: Performed By: #### L [id number] ####Nematologist: ISABEL VERAS ([id number])[facility])[address] [place] [address] Erythrocyte distribution width (RBC) [Ratio] 13.0 % Normal 11.5-15.0 [facility] Comment on above: Performed By: #### L [id number] ####Nematologist: ISABEL VERAS ([id number])[facility])[address] [place] [address] Hematocrit (Bld) [Volume fraction] 43.5 % Normal 40.0-52.0 [facility] Comment on above: Performed By: #### L [id number] ####Nematologist: ISABEL VERAS ([id number])[facility])[address] [place] [address] Hemoglobin (Bld) [Mass/Vol] 14.5 g/dL Normal 13.0-18.0 [facility] Comment on above: Performed By: #### L [id number] ####Nematologist: ISABEL VERAS ([id number])[facility])[address] [place] [address] IMMATURE GRANS % 0.3 % Normal 0.0-2.0 [facility] Comment on above: Performed By: #### L [id number] ####Nematologist: ISABEL VERAS ([id number])[facility])[address] [place] [address] IMMATURE GRANS ABSOLUTE 0.0 10*3/uL Normal <0.1 [facility] Comment on above: Performed By: #### L [id number] ####Nematologist: ISABEL VERAS ([id number])[facility])[address] [place] [address] Lymphocytes (Bld) [#/Vol] 3.4 10*3/uL Normal 1.0-4.3 [facility] Comment on above: Performed By: #### L [id number] ####Nematologist: ISABEL VERAS ([id number])[facility])[address] [place] [address] Lymphocytes/100 WBC (Bld) 36.9 % Normal 15.0-45.0 [facility] Comment on above: Performed By: #### L [id number] ####Nematologist: ISABEL VERAS ([id number])[facility])[address] [place] [address] MCH (RBC) [Entitic mass] 29.1 pg Normal 26.0-34.0 [facility] Comment on above: Performed By: #### L [id number] ####Nematologist: ISABEL VERAS ([id number])[facility] ([facility])[address] [place] [address] MCHC 33.3 % Normal 30.5-36.0 [facility] Comment on above: Performed By: #### L [id number] ####Nematologist: ISABEL VERAS ([id number])[facility] ([facility])[address] [place] [address] MCV (RBC) [Entitic vol] 87.2 fL Normal 77.0-99.0 [facility] Comment on above: Performed By: #### L [id number] ####Nematologist: ISABEL VERAS ([id number])[facility] ([facility])[address] [place] [address] Monocytes (Bld) [#/Vol] 0.7 10*3/uL Normal 0.0-0.9 [facility] Comment on above: Performed By: #### L [id number] ####Nematologist: ISABEL VERAS ([id number])[facility] ([facility])[address] [place] [address] Monocytes/100 WBC (Bld) 7.1 % Normal 5.0-13.0 [facility] Comment on above: Performed By: #### L [id number] ####Nematologist: ISABEL VERAS ([id number])[facility] ([facility])[address] [place] [address] NEUTROPHILS ABSOLUTE 5.1 10*3/uL Normal 1.8-7.5 [facility] Comment on above: Performed By: #### L [id number] ####Nematologist: ISABEL VERAS ([id number])[facility] ([facility])[address] [place] [address] Neutrophils/100 WBC (Bld) 54.5 % Normal 38.0-82.0 [facility] Comment on above: Performed By: #### L [id number] ####Nematologist: ISABEL VERAS ([id number])[facility] ([facility])[address] [place] [address] NRBC 0.0 /100 WBCs Normal 0.0-2.0 [facility] Comment on above: Performed By: #### L [id number] ####Nematologist: ISABEL VERAS ([id number])[facility])[address] [place] [address] Platelet mean volume (Bld) [Entitic vol] 11.4 fL Normal 9.0-12.7 [facility] Comment on above: Performed By: #### L [id number] ####Nematologist: ISABEL VERAS ([id number])[facility] ([facility])[address] [place] [address] Platelets (Bld) [#/Vol] 209 10*3/uL Normal 140-440 [facility] Comment on above: Performed By: #### L [id number] ####Nematologist: ISABEL VERAS ([id number])[facility])[address] [place] [address] RBC (Bld) [#/Vol] 4.99 10*6/uL Normal 4.40-5.90 [facility] Comment on above: Performed By: #### L [id number] ####Nematologist: ISABEL VERAS ([id number])[facility])[address] [place] [address] WBC (Bld) [#/Vol] 9.3 10*3/uL Normal 3.6-10.7 [facility] Comment on above: Performed By: #### L [id number] ####Nematologist: ISABEL VERAS ([id number])[facility] ([facility])[address] [place] [address] COMPLETE URINALYSISon 2023 BACTERIA (#/HPF) IN URINE Negative Normal Negative [facility] Comment on above: Performed By: #### L [id number] ####Nematologist: ISABEL VERAS ([id number])[facility])[address] [place] [address] BILIRUBIN, TOTAL PRESENCE IN URINE Negative Normal Negative [facility] Comment on above: Performed By: #### L [id number] ####Nematologist: ISABEL VERAS ([id number])[facility] ([facility])[address] [place] [address] Clarity (U) Clear Normal Clear [facility] Comment on above: Performed By: #### L [id number] ####Nematologist: ISABEL VERAS ([id number])[facility])[address] [place] [address] Color (U) Yellow Normal Lt. Yellow [facility] Comment on above: Performed By: #### L [id number] ####Nematologist: ISABEL VERAS ([id number])[facility] ([facility])[address] [place] [address] GLUCOSE (MG/DL) IN URINE Normal Normal Normal (<70 ) [facility] Comment on above: Performed By: #### L [id number] ####Nematologist: ISABEL VERAS ([id number])[facility] ([facility])[address] [place] [address] HEMOGLOBIN PRESENCE IN URINE Negative Normal Negative [facility] Comment on above: Performed By: #### L [id number] ####Nematologist: ISABEL VERAS ([id number])[facility])[address] [place] [address] HYALINE CASTS (#/LPF) IN URINE SEDIMENT BY MICROSCOPY Negative Normal Negative [facility] Comment on above: Performed By: #### L [id number] ####Nematologist: ISABEL VERAS ([id number])[facility] ([facility])[address] [place] [address] Ketones Ql (U) Negative Normal Negative [facility] Comment on above: Performed By: #### L [id number] ####Nematologist: ISABEL VERAS ([id number])[facility])[address] [place] [address] LEUKOCYTE ESTERASE PRESENCE IN URINE BY TEST STRIP Negative Normal Negative [facility] Comment on above: Performed By: #### L [id number] ####Nematologist: ISABEL VERAS ([id number])[facility] ([facility])[address] [place] [address] [place] MUCUS (#/LPF) IN URINE SEDIMENT Few Normal Negative [facility] Comment on above: Performed By: #### L [id number] ####Nematologist: ISABEL VERAS ([id number])[facility] ([facility])[address] [place] [address] NITRITE PRESENCE IN URINE Negative Normal Negative [facility] Comment on above: Performed By: #### L [id number] ####Nematologist: ISABEL VERAS ([id number])[facility] ([facility])[address] [place] [address] pH (U) 5.5 [pH] Normal 5.0-8.0 [facility] Comment on above: Performed By: #### L [id number] ####Nematologist: ISABEL VERAS ([id number])[facility] ([facility])[address] [place] [address] Protein (U) [Mass/Vol] 30 mg/dL Abnormal Negative [facility] Comment on above: Performed By: #### L [id number] ####Nematologist: ISABEL VERAS ([id number])[facility] ([facility])[address] [place] [address] RBC (#/HPF) IN URINE SEDIMENT 0-2 Normal 0-2 [facility] Comment on above: Performed By: #### L [id number] ####Nematologist: ISABEL VERAS ([id number])[facility] ([facility])[address] [place] [address] Specific gravity (U) [Rel density] 1.035 High 1.005-1.030 [facility] Comment on above: Performed By: #### L [id number] ####Nematologist: ISABEL VERAS ([id number])[facility])[address] [place] [address] SQUAMOUS EPITHELIAL CELLS (#/HPF) IN URINE SEDIMENT 0-2 Normal 3-5 [facility] Comment on above: Performed By: #### L [id number] ####Nematologist: ISABEL VERAS ([id number])[facility] ([facility])[address] [place] [address] UROBILINOGEN (MG/DL) IN URINE Normal Normal Normal (0-1) [facility] Comment on above: Performed By: #### L [id number] ####Nematologist: ISABEL VERAS ([id number])[facility] [facility])[address] [place] [address] WBC (LEUKOCYTE) (#/HPF) IN URINE SEDIMENT 0-2 Normal 0-5 [facility] Comment on above: Performed By: #### L [id number] ####Nematologist: SIABEL VERAS ([id number])[facility] ([facility])[address] [place] [address] COMPREHENSIVE METABOLIC PANE Shant 04-12-2024 Albumin [Mass/Vol] 4.5 g/dL Normal 3.5-5.0 [facility] Comment on above: Performed By: #### L AB43, LAB34, LAB46, LAB17 ####Nematologist: ISABEL VERAS ([id number])[facility] ([facility])[address] [place] [address] ALP [Catalytic activity/Vol] 68 U/L Normal 38-126 [facility] Comment on above: Performed By: #### L AB43, LAB34, LAB46, LAB17 ####Nematologist: ISABEL VERAS ([id number])[facility] ([facility])[address] [place] [address] ALT [Catalytic activity/Vol] 54 U/L High 0-49 [facility] Comment on above: Performed By: #### L AB43, LAB34, LAB46, LAB17 ####Nematologist: ISABEL EVRAS ([id number])[facility])[address] [place] [address] Anion gap [Moles/Vol] 7 mmol/L Normal 3-13 [facility] Comment on above: Performed By: #### L AB43, LAB34, LAB46, LAB17 ####Nematologist: ISABEL [id number])[facility] [place] [address] [place] AST [Catalytic activity/Vol] 35 U/L Normal 15-46 [facility] Comment on above: Performed By: #### L AB43, LAB34, LAB46, LAB17 ####Nematologist: ISABEL VERAS ([id number])[facility] [place] [address] Bilirubin [Mass/Vol] 0.6 mg/dL Normal 0.2-1.3 [facility] Comment on above: Performed By: #### L AB43, LAB34, LAB46, LAB17 ####Nematologist: ISABEL VERAS ([id number])[facility] ([facility])[address] [place] [address] Calcium [Mass/Vol] 9.4 mg/dL Normal 8.4-10.4 [facility] Comment on above: Performed By: #### L AB43, LAB34, LAB46, LAB17 ####Nematologist: ISABEL VERAS ([id number])[facility] [place] [address] [place] Chloride [Moles/Vol] 100 mmol/L Normal 98-107 [facility] Comment on above: Performed By: #### L AB43, LAB34, LAB46, LAB17 ####Nematologist: ISABEL VERAS ([id number])[facility] [place] [address] [place] CO2 [Moles/Vol] 33 mmol/L High 22-30 [facility] Comment on above: Performed By: #### L AB43, LAB34, LAB46, LAB17 ####Nematologist: ISABEL VERAS ([id number])[facility] ([facility])[address] [place] [address] [place] Creatinine [Mass/Vol] 0.90 mg/dL Normal 0.66-1.25 [facility] Comment on above: Performed By: #### L AB43, LAB34, LAB46, LAB17 ####Nematologist: ISABEL VERAS ([id number])[facility])[address] [place] [address] GLOMERULAR FILTRATION RATE ML/MIN/1.73 SQ M.PREDICTED >90.0 Normal >60.0 [facility] Comment on above: Result Comment: Calc ulation based on the Chronic Kidney Disease Epidemiology Collaboration (CKD-EPI) equation refit without adjustment for race Performed By: #### L AB43, LAB34, LAB46, LAB17 ####Nematologist: ISABEL VERAS ([id number])[facility] ([facility])[address] [place] [address] Glucose [Mass/Vol] 78 mg/dL Normal 70-100 [facility] Comment on above: Performed By: #### L AB43, LAB34, LAB46, LAB17 ####Nematologist: ISABEL VERAS ([id number])[facility] ([facility])[address] [place] [address] Potassium [Moles/Vol] 3.3 mmol/L Low 3.5-5.1 [facility] Comment on above: Performed By: #### L AB43, LAB34, LAB46, LAB17 ####Nematologist: ISABEL VERAS ([id number])[facility] ([facility])[address] [place] [address] Protein [Mass/Vol] 7.7 g/dL Normal 6.3-8.2 [facility] Comment on above: Performed By: #### L AB43, LAB34, LAB46, LAB17 ####Nematologist: ISABEL VERAS ([id number])[facility] ([facility])[address] [place] [address] [place] Sodium [Moles/Vol] 140 mmol/L Normal 135-145 [facility] Comment on above: Performed By: #### L AB43, LAB34, LAB46, LAB17 ####Nematologist: ISABEL VERAS ([id number])[facility])[address] [place] [address] [place] Urea nitrogen [Mass/Vol] 14 mg/dL Normal 9-20 [facility] Comment on above: Performed By: #### L AB43, LAB34, LAB46, LAB17 ####Nematologist: ISABEL VERAS ([id number])[facility] ([address] Comprehensive metabolic 1998 panelon 04-12-2024 Albumin [Mass/Vol] 4.5 g/dL 3.5 - 5.0 g/dL [facility] ALP [Catalytic activity/Vol] 68 U/L 38 - 126 U/L [facility] ALT [Catalytic activity/Vol] 54 U/L High 0 - 49 U/L [facility] Anion gap [Moles/Vol] 7 mmol/L 3 - 13 mmol/L [facility] AST [Catalytic activity/Vol] 35 U/L 15 - 46 U/L [facility] Bilirubin [Mass/Vol] 0.6 mg/dL 0.2 - 1 .3 mg/dL [facility] Calcium [Mass/Vol] 9.4 mg/dL 8.4 - 10. 4 mg/dL [facility] Chloride [Moles/Vol] 100 mmol/L 98 - 10 7 mmol/L [facility] CO2 [Moles/Vol] 33 mmol/L High 22 - 30 mmol/L [facility] Creatinine [Mass/Vol] 0.90 mg/dL 0.66 - 1.25 mg/dL [facility] GFR/1.73 sq M.predicted MDRD (S/P/Bld) [Vol rate/Area] - PINF [facility] Comment on above: Calculation based on the Chronic Kidney Disease Epidemiology Collaboration (CKD-EPI) equation refit without adjustment for race Glucose [Mass/Vol] 78 mg/dL 70 - 100 mg/dL [facility] Interpretation and review of laboratory results Abnormal [facility] th Potassium [Moles/Vol] 3.3 mmol/L Low 3.5 - 5.1 mmol/L [facility] Protein [Mass/Vol] 7.7 g/dL 6.3 - 8.2 g/dL [facility] Sodium [Moles/Vol] 140 mmol/L 135 - 145 mmol/L [facility] Urea nitrogen [Mass/Vol] 14 mg/dL 9 - 20 mg/d L [facility] DRUGS OF ABUSEon 04-12-2024 AMPHETAMINE SCREEN Positive Normal [facility] Comment on above: Performed By: #### L [id number] ####Nematologist: ISABEL VERAS ([id number])[facility] ([facility])[address] [place] [address] BARBITURATES SCREEN Negative Normal [facility] Comment on above: Performed By: #### L [id number] ####Nematologist: ISABEL VERAS ([id number])[facility] ([facility])[address] [place] [address] BENZODIAZEPINE SCREEN Negative Normal Sum [facility] Comment on above: Performed By: #### L [id number] ####Nematologist: ISABEL VERAS ([id number])[facility] ([facility])[address] [place] [address] COCAINE METAB. SCREEN Negative Normal [facility] Comment on above: Performed By: #### L [id number] ####Nematologist: ISABEL VERAS ([id number])[facility] ([facility])[address] [place] [address] METHADONE SCREEN Negative Normal [facility] Comment on above: Performed By: #### L [id number] ####Nematologist: ISABEL VERAS ([id number])[facility] ([facility])[address] [place] [address] OPIATES SCREEN Negative Normal [facility] Comment on above: Performed By: #### L [id number] ####Nematologist: ISABEL VERAS ([id number])[facility] [place] [address] OXYCODONE SCREEN Negative Normal [facility] Comment on above: Performed By: #### L [id number] ####Nematologist: ISABEL VERAS ([id number])[facility] ([facility])[address] [place] [address] PHENCYCLIDINE SCREEN Negative Normal [facility] Comment on above: Result Comment: ORDE R COMMENTS: The expected value for all [...] under separate order. Performed By: #### L [id number] ####Nematologist: ISABEL VERAS ([id number])[facility] ([facility])[address] [place] [address] ED Nursing Noteon 04-12-2024 ED Nursing Note Pt is being discharged. He was given his belongings and taken to room 47 to change back into his own clothing. Lorraine Scott 04/12/[address] [facility] ED Nursing Note Providers in room speaking with pt. Michelle Avila 04/12/[address] [facility] ED Nursing Note Pt using the bathroom per request Michelle Avila 04/12/[address] [facility] ED Nursing Note Breakfast tray given to pt. Michelle Avila 04/12/[address] [facility] ED Nursing Note Provider in room speaking with pt Michelle Avila 04/12/[address] [facility] ED Nursing Note Registration in [facility] 04/12/[address] [facility] ED Nursing Note Patient had urine collected and sent to lab. Juan Ramon Madden RN 04/12/[address] [facility] ED Nursing Note Isaiah Gomez in rm obtaining vitals [facility] 04/12/[address] [facility] ED Nursing Note Dr Mcknight in speaking w/ pt [facility] 04/12/[address] [facility] ED Nursing Note Wanded by PS 2 bags [facility] 04/12/[address] [facility] ED Nursing Note Pt changing into 2 gowns, non slip socks [facility] 04/12/[address] [facility] ED Nursing Note Pt walked back to ED unit by JANESSA Tenorio In rm 47 for intake process Calm and cooperative. [facility] 04/12/[address] [facility] ED Nursing Note Patient presents to the [...] Patient calm and cooperative throughout triage process. [facility] ED Provider Noteon ED Provider Note EMERGENCY [...] Urinalysis wit (more content not included)... Normal [facility] ED Provider Note Emergency Department Encounter [facility] EMERGENCY DEPT Patient: Keayna Pham : 2000 Date of Evaluation: 04/12/2024 [...] for clarification.) Douglas Lord MD Acute Care [facility] Douglas Lord MD 04/12/24 0810 Normal [facility] ETHANOLon 04-12-2024 ETHANOL IN SER/PLAS <0.010 Normal 0.000-0.010 [facility] Comment on above: Result Comment: HARLEY Henriquez COMMENTS: NOTE: This result is for medical treatment only. Analysis performed using non-forensic procedures. Performed By: #### L AB43, LAB34, LAB46, LAB17 ####Nematologist: ISABEL VERAS ([id number])[address] Ethanol (Bld) [Mass/Vol]on 0 04-12-2024 Ethanol [Mass/Vol] g/dL 0.000 - 0 .010 g/dL [facility] Interpretation and review of laboratory results Normal [facility] - Drug toxicology Ordered By: Rodney Hyatt on 04-12-2024 Amphetamines Screen method >1000 ng/mL Ql (U) Positive [facility] Barbiturates Screen method >200 ng/mL Ql (U) Negative [facility] Benzodiazepines Ql (U) Negative Hurt mma [facility] Methadone Screen Ql (U) Negative S [facility] Opiates Screen Ql (U) Negative Sum [facility] oxyCODONE Ql (U) Negative [facility] Phencyclidine Ql (U) Negative [facility] - Drug toxicology on 04-12-2024 Acetaminophen [Mass/Vol] ug/mL Low 10. 0 - 30.0 ug/mL [facility] Salicylates [Mass/Vol] mg/dL NINF - 20.0 mg/dL [facility] Laboratory - Microbiology an d Antimicrobial susceptibilityOrdered By: Kirsten Martinez on 04-12-2024 SARS-CoV-2 (COVID-19) Ag IA.rapid Ql (Resp) Negative Negative [facility] Comment on above: A negative result do es not rule out the possibility of SARS-CoV-2 infection. NAAT-based methods should be considered for symptomatic patients presenting greater than seven days after onset of symptoms. Method: Lateral flow immunoassay. Fact sheets for healthcare providers and patients can be found at the following sites: https://www.fda.gov/media/492453/download https://www.[employer].gov/media/154812/download No Panel InformationOrdered By: Rodney Hyatt on 04-12-2024 COCAINE METAB. SCREEN Negative [facility] The expected value for all of [...] is needed, request confirmation under separate order. [facility] No Panel Informationon 04-12 [facility] SALICYLATEon 04-12-2024 SALICYLATES <1.0 Normal <20.0 [facility] Comment on above: Performed By: #### L AB43, LAB34, LAB46, LAB17 ####Nematologist: ISABEL VERAS ([id number])[facility] ([address] SARS-COV-2 ANTIGENon 024 SARS-COV-2 ANTIGEN SARS-COV-2 ANTIGEN -BINAX Reference Negative Negative A negative result does not rule out the possibility of SARS-CoV-2 infection. NAAT-based methods should be considered for symptomatic patients presenting greater than seven days after onset of symptoms. Method: Lateral flow immunoassay. Fact sheets for healthcare providers and patients can be found at the following sites: https://www.fda.gov/ media/898785/downloa d https://www.fda.gov/ media/729254/downloa d Normal [facility] Comment on above: Performed By: #### L [id number] #### Nematologist: ISABEL VERAS ([id number]) [facility] ([facility]) [address] [place] [address] SARS-CoV-2 (COVID-19) Ag IA. rapid Ql (Resp)Ordered By: Kirsten Martinez on 04-12-2024 Interpretation and review of laboratory results Normal [facility] Salicylates [Mass/Vol]on Interpretation and review of laboratory results Normal [facility] Urinalysis complete panel (U )Ordered By: Bee Jerome on 04-12-2024 Bacteria LM.HPF (Urine sed) [#/Area] Negative Negative /HPF [facility] Bilirubin Ql (U) Negative Negative mg/dL [facility] Clarity (U) Clear Clear [facility] Color (U) Yellow Lt. Yellow [facility] Epithelial cells.squamous LM.HPF (Urine sed) [#/Area] 0-2 [facility] Glucose Ql (U) Normal Normal (<70) mg/dL [facility] Hemoglobin Ql (U) Negative Negative mg/dL [facility] Hyaline casts Auto (Urine sed) [#/Area] Negative Negative /LPF [facility] Interpretation and review of laboratory results Abnormal [facility] Ketones (U) [Mass/Vol] Negative Negat maribel mg/dL [facility] Leukocyte esterase Test strip Ql (U) Negative Negative Reese/uL [facility] Mucus LM.HPF (Urine sed) [#/Area] Few Negative /LPF [facility] Nitrite Ql (U) Negative Negative [facility] pH (U) 5.5 [pH] 5.0 - 8.0 pH [facility] Protein (U) [Mass/Vol] 30 mg/dL Abnormal Negative [facility] RBC LM.HPF (Urine sed) [#/Area] 0-2 [facility] Specific gravity (U) [Rel density] 1.035 High 1.005 - 1.030 [facility] Urobilinogen (U) [Mass/Vol] Normal Normal (0-1) mg/dL [employer] WBC LM.HPF (Urine sed) [#/Area] 0-2 [facility] CNOVon 12-22-2018 CNOV Office Visit (UCWSTR) KEYANA PHAM ([id number]) 1 M Date Time Provider Department 12/22/18 4:00 PM KELLY BARBOZA (DAILY SALES AUDIT CLERK) [facility] During your visit today, we [...] treatment plan. Kelly Barboza APRN.ANA LAURA Barboza APRN.ANA LAURA 12/22/2018 4:48 PM Signed ASSESSMENT/PLAN: 1. Acute [...] KNEE GENERAL 4V AP BOTH/PA BOTH/LAT/MERC RT [[id number]] Order #: [id number]. #:[id number] methylPREDNISolone (MEDROL, TRACY,) 4 mg Dose-PackFollow dosing instructions, take with food.Disp: 1 PackageRfl: 0 Prescriptions as of 12/22/2018 Sig: METHYLPREDNISOLONE 4 MG TABLE* Follow dosing instructions, t* METHYLPHENIDATE ER 18 MG TABL* Take 18 mg by mouth once luic* Problem List As Of Date: 12/22/2018 (None) [...] dosing instructions, take with food. Letter Text [facility] Kelly Barboza CNP [address] [place], [place] [address] 12/22/2018 Keyana Spearsshivani [facility]# [id number] [address] [place] [address] TO WHOM IT MAY CONCERN: This is to confirm that Keyana Pham had an appointment and was seen at the [facility] in the Department of Urgent Care by Kelly Barboza CNP on 12/22/2018. Sincerely, Kelly Barboza CNP Encounter Status:Closed by KELLY BARBOZA CNP on 12/22/18 Normal [facility] PROGRESSon 12-22-2018 Protein mass conc HNO ID: [id number] Author: Sienna Torrez (Rt) Isaiah Avila Service: (none) Author Type: Acid Dipper Type: Progress Notes Filed: 12/22/2018 4:39 PM [...] PERIPHERAL IV DATA: Not applicable SIGNED BY: Sienna Avila, December 22, 2018 4:26 PM Normal [facility] Protein mass conc HNO ID: [id number] Author: Kelly Barboza Service: (none) Author Type: [...] Patient agreeable to treatment plan. Kelly Barboza APRN.DAILY SALES AUDIT CLERK Normal [facility] XR KNEE 4V AP/PA BOTH+LAT/ME R RTon [...] knee effusion. IMPRESSION: No acute osseous abnormality. Clinical Assistant: PSCB Transcribe Date/Time: Dec 22 2018 4:42P Dictated by : KAILEE FLORIAN MD This examination was interpreted and the report reviewed and electronically signed by: ANAIS DAVALOS MD on Dec 22 2018 4:47PM EST [id number] Normal [facility] Vital Signs Date Time Vital Sign Value Performing Clinician Faci lity 08-13-2025 10:58-0400 Body temperature 98.7 [degF] No Primary Care Physician [facility] 08-13-2025 10:58-0400 Diastolic blood pressure 61 mm[Hg] No Primary Care Physician [facility] 08-13-2025 10:58-0400 Heart rate 89 /min No Primary Care Physician [facility] 08-13-2025 10:58-0400 Respiratory rate 16 /min No Primary Care Physician [facility] 08-13-2025 10:58-0400 SaO2% (BldA) [Mass fraction] 99 % No Primary Care Physician [facility] 08-13-2025 10:58-0400 Systolic blood pressure 129 mm[Hg] No Primary Care Physician [facility] 08-13-2025 09:07-0400 Body height 180.34 cm No Primary Care Physician [facility] 08-13-2025 09:07-0400 Body mass index (BMI) [Ratio] 29.4 kg/m2 No Primary Care Physician [facility] 08-13-2025 09:07-0400 Body weight 95.7 kg No Primary Care Physician [facility] 04-30-2025 13:02-0400 Body height 180.34 cm No Primary Care Physician [facility] 04-30-2025 13:02-0400 Body temperature 98 [degF] No Primary Care Physician [facility] 04-30-2025 13:02-0400 Diastolic blood pressure 87 mm[Hg] No Primary Care Physician [facility] 04-30-2025 13:02-0400 Heart rate 82 /min No Primary Care Physician [facility] 04-30-2025 13:02-0400 Respiratory rate 14 /min No Primary Care Physician [facility] 04-30-2025 13:02-0400 SaO2% (BldA) [Mass fraction] 98 % No Primary Care Physician [facility] 04-30-2025 13:02-0400 Systolic blood pressure 138 mm[Hg] No Primary Care Physician [facility] 04-12-2024 10:08-0400 Body temperature 97 [degF] Douglas Lord MD Work Phone: [facility] 04-12-2024 10:08-0400 Diastolic blood pressure 78 mm[Hg] Douglas Lord MD Work Phone: [facility] 04-12-2024 10:08-0400 Heart rate 88 /min Douglas Lord MD Work Phone: [facility] 04-12-2024 10:08-0400 Respiratory rate 16 /min Douglas Lord MD Work Phone: [facility] 04-12-2024 10:08-0400 Systolic blood pressure 128 mm[Hg] Douglas Lord MD Work Phone: [facility] 04-12-2024 07:00-0400 SaO2% (BldA) [Mass fraction] 100 % Douglas Lord MD Work Phone: [facility] Encounters Encounter Date Encounter Type Care Provider Facility Start: 08-13-2025 End: 08-13-2025 Emergency department patient visit No Primary Care Physician Facility:[facility] Start: 04-30-2025 End: 04-30-2025 Emergency department patient visit No Primary Care Physician -Emergency Department Work Phone: Start: 10-05-2024 Encounter for genera l adult medical examination without abnormal findings Ed Physician Provider [facility] Start: 09-09-2024 End: 09-09-2024 Emergency department patient visit Ed Physician Provider Facility:[facility] Start: 04-12-2024 End: 04-12-2024 Emergency department patient visit Douglas Lord MD Work Phone: [facility] Comment on above: Suicidal ideation (P rimary Dx) Start: 12-22-2018 End: 12-23-2018 Patient encounter procedure MENDOZA (PA) [facility] Procedures Date Procedure Procedure Detail Performing Clinician [...] or older (1 - 1-dose 60+ series) [facility] Start: 2050 Zoster Vaccines (1 of 2) Zoster Vaccines (1 of 2) [facility] Start: 08-13-2025 [facility] Start: 04-30-2025 [facility] Start: 07-05-2024 Influenza vaccination Influenza Vaccine (Season Ended) [facility] Start: 07-05-2023 COVID-19 Vaccine ( season) COVID-19 Vaccine ( season) [facility] Start: 2019 DTaP/Tdap/Td Vaccines (1 - Tdap) DTaP/Tdap/Td Vaccines (1 - Tdap) [facility] Start: 2019 Hepatitis B Vaccines (1 of 3 - 19+ 3-dose series) Hepatitis B Vaccines (1 of 3 - 19+ 3-dose series) [facility] Start: 2018 Hepatitis C screening Hepatitis C Screening [facility] Start: 2015 HPV Vaccines (1 - Male 3-dose series) HPV Vaccines (1 - Male 3-dose series) [facility] Start: 2013 Varicella vaccination Varicella Vaccines (1 of 2 - 13+ 2-dose series) [facility] Start: 2012 Depression Screening Depression Screening [facility] Start: 2006 Pneumococcal Vaccine: Pediatrics (0 to 5 Years) and At-Risk Patients (6 to 64 Years) (1 of 2 - PCV) Pneumococcal Vaccine: Pediatrics (0 to 5 Years) and At-Risk Patients (6 to 64 Years) (1 of 2 - PCV) [facility] Start: 2001 MMR Vaccines (1 of 1 - Standard series) MMR Vaccines (1 of 1 - Standard series) [facility] Start: 2000 HIV screening HIV Screening [facility] Start: 2000 Lipid panel Lipid Panel [facility] Patient Education [facility] Work Phone: Payers Date Payer Category Payer Unknown [id number] 2025 Unknown [id number] 2024 Self-pay 2024 Private Health Insurance [employer] H[employer] [id number] 2024-Present [address] [place] [address] Commercial [id number] 2024 Private Health Insurance [id number] Unknown [id number] Unknown [id number] Unknown [id number] Social History Date Type Detail Facility Start: 04-12-2024 Tobacco smoking status [facility] Occasional tobacco smoker [facility] History of tobacco use Cigarette Smoker [facility] Start: 04-12-2024 Tobacco use and exposure Smokeless tobacco non-user [facility] Start: 04-12-2024 Alcohol intake Current drinke r of alcohol (finding) [facility] Start: 04-12-2024 History of Social function [facility] Start: 04-12-2024 Tobacco use panel [facility] Start: 2000 Sex Assigned At Not on file S [facility] Start: 04-30-2025 Tobacco smoking status NHIS Tobacco smoking consumption unknown (finding) [facility] Start: 08-27-2019 Tobacco Use Tobacco Use [facility] Start: 2000 Sex Assigned At Male [facility] Start: 08-13-2025 Tobacco smoking status NHIS Never smoked tobacco (finding) [facility] Clinical Notes 04-12-2024 to 08-13-2025 Lorraine Scott - 04/12/2024 10:07 AM EDTDaanniesurjit Sonia - 04/12/2024 10:07 AM EDTAcris Avila - 04/12/2024 8:54 AM EDTAcris Avila - 04/12/2024 8:49 AM EDTInkylah Santiago - 04/12/2024 7:12 AM EDT Note Date & Type Note Facility 08-13-2025 Discharge summary [facility] 04-12-2024 Emergency department Note Pt is being discharged. He was given his belongings and taken to room 47 to change back into his own clothing. Lorraine Scott 04/12/24 1008 [facility] 04-12-2024 Emergency department Note Pt is being discharged. He was given his belongings and taken to room 47 to change back into his own clothing. Lorraine Scott 04/12/24 1008 Providers in room speaking with pt. Michelle Avila 04/12/24 0854 Pt using the bathroom per request Michelle Avila 04/12/24 0849 Breakfast tray given to pt. Michelle Avila 04/12/24 0824 Provider in room speaking with pt Michelle Avila 04/12/24 0743 [facility]13 Patient had urine collected and sent to lab. Juan Ramon Madden RN 04/12/24 0710 Tech Patricia in obtaining vitals [facility] Jack 04/12/[address] Mcknight in speaking w/ pt [facility] Jack 04/12/24 0623 Wanded by PS 2 bags [facility] Jack 04/12/24 0603 Pt changing into 2 gowns, [facility] slip [facility]49 Pt walked back to ED BH unit by JANESSA Tenorio In 47 for intake process Calm and cooperative. [facility] 04/12/24 0547 EMERGENCY DEPARTMENT ENCOUNTER [...] Culture. Procedure Abnormality Status --------- ------ Complete Urinalysis[[id number]] Abnormal Final result Please view results for [...] for clarification.) Douglas Lord MD Acute Care [facility] Douglas Lord MD 04/12/24 0810 [...] throughout triage process. documented in this encounter [facility] 04-12-2024 Hospital Dischneida Andrew, - 04/12/2024 9:34 AM EDT Images from the original note were not included. You have been evaluated in the Emergency Department today for a behavioral health problem. This evaluation did not result in a recommendation for hospitalization, but your symptoms may change management administrator time, which is why it is important to follow-up. I recommend you contact the following mental health provider(s) to schedule an appointment as soon as possible: [] [facility]; [facility] [employer] [facility] (Psychiatry, Counseling,Addiction Services); [address], [address], [place] [address]; [] [facility]; (Psychiatry, Counseling, Addiction Services); [address], [address] [address]; [] [facility]; (Psychiatry, Counseling); [address] [place] [address]; [] [facility]; (Psychiatry, Counseling); [address], [address], [place] [address]; [] [facility]; (Psychiatry, Counseling); [address] [place] [address]; [] [facility]; (Psychiatry, Counseling); [address], [place] [address]; [] [facility]; (Psychiatry, Counseling); [address], [address], [place] [address]; [] [facility] ([facility]seling, [facility]); [address] [place] [address]; [x] [facility] (Psychiatry, Counseling, Case Management); [address], [place] [address]; ; for initial assessments you may call or walk-in on Mondays and Tuesdays at 8:00 AM [] [facility] (Psychiatry, Counseling, Case Management); [address] [place] [address]; ; for initial assessments you may call or walk-in on at noon [] [facility] (Psychiatry, Counseling, Case Management); [address] [place] [address]; [] [facility] (Counseling, Group - has evening hours); [address] [place] [address]; [x] [facility] (Psychiatry, Counseling, Case Management, Addiction Services); [address] [place] [address]; [] [facility] (Psychiatry, Counseling, Case Management, Addiction Services); [address] [place] [address] [address]; [] [facility] (Psychiatry, Counseling, Case Management, Addiction Services); [address], [address], [place] [address]; [] [facility] (Psychiatry, Counseling); [address] [place] [address]; [] [facility] (Psychiatry, Counseling, Case Management - has evening and weekend hours); [address] [place] [address]; If you or someone you know is struggling or in crisis, help is available. Call or text 168 or chat [email or web address]. -OR- Call the [facility] Crisis Hotline at 362-126-7711 -OR- Visit [facility]'s Psychiatric Emergency Services, in person, at [address] [place] [address]; You should return to the Emergency Department or call 911 immediately if your symptoms worsen, new symptoms develop, or if you can no longer keep yourself or others safe. 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 Pt was referred to [facility] and [facility]. Diagnostic Impression: Unspecified mood disorder Risk of [...] stimulants RECOMMENDATIONS: Disposition: Home with follow-up at [facility] or [place] Management of the patient was discussed with Dr. Wynne, ED provider. Workup: None to be ordered by psychiatry Medications: None to be ordered by psychiatry Pt seen and discussed with attending psychiatrist, Dr. Wynne, who agrees with above recommendations. documented in this encounter [facility] 04-12-2024 Emergency department Note Providers in room speaking with pt. Michelle Avila 04/12/24 0854 [facility] 04-12-2024 Emergency department Note Pt using the bathroom per request Michelle Avila 04/12/24 0849 [facility] 04-12-2024 Emergency department Note Breakfast tray given to pt. Michelle Avila 04/12/24 0824 [facility] 04-12-2024 Emergency department Note Provider in room speaking with pt Michelle Avila 04/12/24 0743 [facility] 04-12-2024 Emergency department [facility] 0713 [facility] 04-12-2024 Emergency department Note Patient had urine collected and sent to lab. Juan Ramon Madden RN 04/12/24 0710 [facility] 04-12-2024 Emergency department Note Isaiah Gomez in obtaining vitals [facility] Jack 04/12/24 0659 [facility] 04-12-2024 Note NOTE: This result is for medical treatment only. Analysis performed using non-forensic procedures. [facility] 04-12-[address] Mcknight in speaking w/ pt [facility] Jack 04/12/24 0623 [facility] 04-12-2024 Emergency department Note Wanded by PS 2 bags [facility] 04/12/24 0603 [facility] 04-12-2024 Emergency department Note Pt changing into 2 gowns, non slip socks [facility] 04/12/24 0549 [facility] 04-12-2024 Emergency department Note Pt walked back to ED BH unit by JANESSA Tenorio In rm 47 for intake process Calm and cooperative. [facility] 04/12/24 0547 [facility] 04-12-2024 Emergency department Triage note Patient presents [...] Patient calm and cooperative throughout triage process. [facility] 04-12-2024 Physician Emergency department Note EMERGENCY DEPARTMENT [...] Culture. Procedure Abnormality Status --------- ------ Complete Urinalysis[[id number]] Abnormal Final result Please view results for [...] Fernando Mcknight II, MD Resident 04/12/24 1000 [facility] 04-12-2024 Physician Emergency department Note Emergency Department [...] for clarification.) Douglas Lord MD Acute Care [facility] Douglas Lord MD 04/12/24 0810 [email or web address] Phone: Discharge summary Note Date/Time August 13, 2025 10:54am [facility] Medical Records Department [address] [place] [address] Emergency Department Summary 08/13/25 MR#: [id number] Acct: [id number] Name: KEYANA PHAM Rep #:[id number] : 2000 24 From: Ania Ruiz MD PCP: Care Physician,No Primary Status :REG ER Location: ED HPI History of Present Illness Chief Complaint: Back Narrative Narrative: Patient is a 24-year-old male presenting to the emergency department for right sided back pain that radiates down the back of his right leg. Patient has no significant past medical history. States he has had sciatica before. Reports that he works in [employer]. He was at work yesterday and twisted while on a ladder and had some lower right sided back pain. However last night while he wastrying to sleep he developed pain down the back of his right leg. He denies fever, chills, neck pain. Denies any trauma or falls. Denies any saddle anesthesia, bowel or bladder retention or incontinence, IV drug use, diabetes, immunocompromise status, cancer history or recent weight loss. Denies any numbness or weakness in his lower extremities. Took ibuprofen last night for pain. [facility] Medical History Pain, dental Home Medications ?Medication ?Instructions ?Recorded ?Last Taken ?Type hydrocodone-acetaminophen 5-325mg 1 tab PO Q6H PRN PRN Pain 3 days 04/30/25 Unknown Rx 5mg-325mg #10 TABLETS penicillin V potassium 500 mg 500 mg PO 4X/DAY #40 tab s 04/30/25 Unknown Rx tablet cyclobenzaprine 10 mg tablet 10 mg PO TID PRN Muscle S pasm #20 08/13/25 Unknown Rx TABLETS lidocaine 5 % topical patch 1 patch topical DAILY #15 ea 08/13/25 Unknown Rx (Lidoderm) prednisone 20 mg tablet 40 mg (2 x 20 mg) PO DAILY 5 days 08/13/25 Unknown Rx #10 tabs Allergy/AdvReac Type Severity Reaction Status Date / Time No Known Allergies Allergy Verified 08/13/25 09:07 Social History Smoking Status: Never smoker ROS ROS ED ROS Narrative see HPI EXAM Physical Exam Narrative Exam Narrative: Vital signs: Reviewed General: Alert and orientedx3. No acute distress HEENT: Head is normocephalic and atraumatic, sinuses nontender, pupils equal round and reactive. Nares are patent. Oropharynx and throat exams normal. Neck: Supple without lymphadenopathy nontender Cardiovascular: Regular rate and rhythm, no murmurs. No rubs or gallops. Normal S1 and S2 Respiratory: Clear to auscultation bilaterally. No wheezes, rales, rhonchi Abdominal: Soft and nontender. Normal bowel sounds. No guarding or rebound. Nonsurgical abdomen Extremities: No midline cervical, thoracic or lumbar spinal tenderness to palpation. No step-offs or deformities. There is right lower lumbar paraspinaltenderness to palpation. There is no erythema, warmth, fluctuance of the back. 5 out of 5 strength in bilateral lower extremities. Sensation intact in bilateral lower extremities. Patient able to flex and extend at hip and knee without difficulty. DP and PT pulses intact bilaterally. Skin: No rash or redness. Neurological: Cranial nerves II through XII are grossly intact. Normal strengthand sensation. Normal cerebellar function The rest of the physical exam is unremarkable Const Vital Signs: 08/13/25 09:07 Temperature 97.8 F Temperature Source Oral Pulse Rate 83 Respiratory Rate 18 Blood Pressure 135/84 H Blood Pressure Mean 101 Pulse Ox 100 Oxygen Delivery Method Room Air MDM MDM MDM Narrative Medical decision making narrative: Patient is a 24-year-old male presenting to the emergency department for back pain that started yesterday. Patient was seen and examined. Vitals are stable. Patient resting bed comfortably no acute distress. Patient has no red flag back pain signs as discussed in the HPI. I do not thinkthis is cauda equina, spinal epidural abscess. He had no trauma or falls to his back. Do not think this is a fracture of his vertebrae causing spinal compression. No indication for CT imaging of his back. HPI and physical exam are consistent with sciatica. Will give Toradol and Flexeril here. Will prescribe a steroid burst for home. Will also prescribe Flexeril and lidocaine patches for home. He was able to ambulate in the emergency department without difficulty. He was reevaluated after the medications were given and he notes moderate improvement in his symptoms. He does not have a primary care doctor, areferral was given. This was discussed with patient and he feels comfortable with the plan. Patient discharged from the Emergency Department. I do not feel that the patient's evaluation reveals any acute reason for admission at this time. I instructed them to either follow-up with their primary care physician orpromptly return to the Emergency Department for reevaluation should symptoms worsen or new symptoms develop. I explained what symptoms would indicate the need to return to the emergency department. Shared decision making was used. Thepatient voiced understanding of the treatment plan and is agreeable with it. Clinical impression: Back pain Sciatica History & Record Review Discussion w/independent historian: Patient Discharge Plan Triage Chief Complaint: Back ED Provider: Ania Ruiz Dx/Rx/DC Orders Clinical Impression: Back pain, Sciatica Instructions: ED Back Sprain/Strain, ED Sciatica Prescriptions: New lidocaine [Lidoderm] 5 % adhesive patch,medicated 1 patch topical DAILY Qty: 15 0RF Rx Instructions: leave on most painful area for up to 12 hrs cyclobenzaprine 10 mg tablet 10 mg PO TID PRN (Reason: Muscle Spasm) Qty: 20 0RF prednisone 20 mg tablet 40 mg PO DAILY 5 Days Qty: 10 0RF No Action hydrocodone-acetaminophen 5-325 mg tablet 1 tab PO Q6H PRN PRN (Reason: Pain) 3 Days Qty: 10 0RF penicillin V potassium 500 mg tablet 500 mg PO 4X/DAY Qty: 40 0RF Primary Care Provider: Care Physician,No Primary Referrals: Karen Ashton MD [Med Staff - Speeder Tender, Internal Medicine] - As soon as possible Care Physician,No Primary [Primary Care Provider, Medical] Activity Restrictions/Additional Instructions: Over the next 5 to 7 days take NSAIDs which include Motrin, ibuprofen, Advil or Aleve scheduled throughout the day to help with your pain and inflammation. Apply the lidocaine patch to your right lower back where you are having the painand remove after 12 hours. Do not leave it on longer than this. Take the Flexeril every 6-8 hours as needed for muscle spasms. Do not take this while driving or operating heavy machinery as this causes you to be tired. Take the steroid 2 pills daily for 5 days. Follow-up with the primary care doctor that Iprovided to you. Your evaluation in the Emergency Department did not reveal anyacute reason for admission. However, I want to emphasize that you may be early in the course of a disease process or illness even if it is not present. For this reason you should follow-up within 24 hours for reevaluation with either your primary care physician or if necessary back here in the Emergency Department. You should return to the Emergency Department immediately if your symptoms worsen or new symptoms develop. Print Language: Honduran Disposition Disposition: Home, Self Care What to do if you have Problems For any increased pain, shortness of breath, bleeding, nausea or vomiting, chestpain, or any unexpected problems, contact your Primary Care Provider. Call [facility] ([phone]) or report to the closest Emergency Room. Call 911 if necessary. 08/13/25 1059 <Electronically signed by Ania Ruiz MD> Cosigner Signature (if applicable): CC: No Primary Care Physician ~ Signed [facility] Work Phone: Evaluation note* Diagnosis Suicidal ideation- Primary [facility] noteNo assessment information availableWLicking Memorial Hospital Work Phone: Hospital Discharge instructionsAdditional Instructions Over the next 5 to 7 days take NSAIDs which include Motrin, ibuprofen, Advil or Aleve scheduled throughout the day to help with your pain and inflammation. Apply the lidocaine patch to your right lower back where you are having the pain and remove after 12 hours. Do not leave it on longer than this. Take the Flexeril every 6-8 hours as needed for muscle spasms. Do not take this while driving or operating heavy machinery as this causes you to be tired. Take the steroid 2 pills daily for 5 days. Follow-up with the primary care doctor that I provided to you. Your evaluation in the Emergency Department did not reveal any acute reason for admission. However, I want to emphasize that you may be early in the course of a disease process or illness even if it is not present. For this reason you should follow-up within 24 hours for reevaluation with either your primary care physician or if necessary back here in the Emergency Department. You should return to the Emergency Department immediately if your symptoms worsen or new symptoms develop.[facility] Work Phone: Reason for referral (narrative)No reason for referral information availableWTaboolaSumma [facility] Work Phone: Summary Purpose Family History No Family History Records FoundNo Family History Records FoundNo Family History Records Found Advance Directives Advance Directive Response Recorded Date/ Time Do you have a Healthcare Power of College Admissions Counselor? No April 30, 2025 1:06pm Advance Directive Response Recorded Date/ Time Do you have a Healthcare Power of College Admissions Counselor? No August 13, 2025 9:07am Chief Complaint and Reason for Visit Chief Complaint Admit Date DENTAL April 30, 2025 1:02 pm Chief Complaint Admit Date BACK August 13, 2025 9 :07am Additional Source Comments (unrecognized sect ion and content) No Status Records FoundNo Status Records FoundNo Status Records Found INFORMATION SOURCE (unrecogn ized section and content) DATE CREATED AUTHOR 12/24/2018 [facility] DATE CREATED AUTHOR AUTHOR'S ORGANIZ ATION 04/12/2024 [facility] DATE CREATED AUTHOR AUTHOR'S ORGANIZ ATION 08/21/2025 [facility] Reason for Visit (unrecogniz ed section and content) Reason Comments Psychiatric Evaluation Care Teams (unrecognized sec tion and content) Team Status: Active Member Role/Relationship Status Dates No Primary Care Physician Primary Care Provider Active Team Status: Inactive Member Role/Relationship Status Dates No Primary Care Physician Primary Care Provider Active Start: April 30, 2025 End: April 30, 2025 Dr. Ervin Rodríguez DO Emergency Provider Active Start: April 30, 2025 End: April 30, 2025 Team Status: Active Member Role/Relationship Status Dates No Primary Care Physician Primary care physician Activ e Team Status: Inactive Member Role/Relationship Status Dates No Primary Care Physician Primary care physician Activ e Start: August 13, 2025 End: August 13, 2025 Dr. Ania Ruiz MD Attending physician Active Start: August 13, 2025 End: August 13, 2025 Dr. Ania Ruiz MD Emergency Departmen t Physician Active Start: August 13, 2025 End: August 13, 2025 Goals (unrecognized section and content) Goals may be documented in a n alternate sectionGoals may be documented in an alternate section FOR RECORDS PERTAINING TO PATIENTS [...] BE BASED ON THE PRIMARY CLINICAL RECORDS. [employer] [facility]. provides no warranty or guarantee of the accuracy or completeness of information in this document.
[2025-10-12 00:31] LABS: Hematocrit 42.4 % (40-54); Hemoglobin 14.1 g/dL (13.0-16.5); Immature Granulocytes Count 0.050 X10^3/uL (0.0-0.0); Mean Corp Hgb Conc 33.3 g/dL (32-36); Mean Corpuscular Volume 89.6 fL (80-94); Mean Platelet Vol. 10.8 fl (6.2-12.0); NRBC Flagged by Analyzer 0 % (0-5); Platelet Count 153 K/mm3 (150-450); RBC Distribution Width CV 12.9 % (11.6-14.6); RBC Distribution Width SD 42.7 fl (35.1-43.9); Red Blood Count 4.73 M/mm3 (4.6-6.2); White Blood Count 7.4 K/mm3 (4.4-11.0)
[2025-10-12] MEDS: 0.9% Normal Saline (1000mL) 1,000 ML 999 ML IV (00:37)
[2025-10-12] MEDS: Pantoprazole Sodium 40 MG in 0.9% Normal Saline (100mL MB+) 100 ML 300 MG IV (00:38)
[2025-10-12 00:47] LABS: AST(SGOT) 29 U/L (<=37); Alanine Aminotransfer ALT/SGPT 44 U/L (<=46); Albumin, Serum 4.1 g/dL (3.5-5.0); Alkaline Phosphatase 75 U/L (40-129); Anion Gap 11 (5-15); BUN 15 mg/dL (4-19); BUN/Creat Ratio 18.9 RATIO (10-20); Bilirubin, Direct 0.15 mg/dL (0.00-0.30); Calcium,Total 9.2 mg/dL (7.6-11.0); Carbon Dioxide 27.1 mmol/L (21.0-32.0); Chloride 102 mmol/L (98-108); Estimated Creatinine Clearance 179.69 ml/min (50-250); Globulin 2.8 g/dL (2.2-4.2); Glucose 94 mg/dL (70-99); Lipase 19 U/L (13-75); Potassium 3.7 mmol/L (3.3-5.1)
[2025-10-12 00:51] VITALS: BP 126/74; PULSE 86; O2SAT 100
[2025-10-12 01:00] VITALS: BP 137/93
--- NOTE | 2025-10-12 01:35 | EX.ED.DYSGE1 ---
HPI History of Present Illness Chief Complaint: Abd Pain Informant: patient Narrative Narrative: Patient is a 24-year-old male who reports no clinically significant past medical history. He states over the past week he has noticed midepigastric abdominal pain that seems to worsen after eating. He denies any known sick contact. He states that there has been no vomiting or diarrhea. He reports that he does drink a moderate amount of caffeine as well as vapes. He denies any excessive alcohol use or recurrent NSAID use. He states that as his symptoms are not improving and he is unsure as to what is causing the persistent abdominal discomfort he presents for evaluation [facility] Medical History Pain, dental Home Medications ?Medication ?Instructions ?Recorded ?Last Taken ?Type hydrocodone-acetaminophen 5-325mg 1 tab PO Q6H PRN PRN Pain 3 days 04/30/25 Unknown Rx 5mg-325mg #10 TABLETS penicillin V potassium 500 mg 500 mg PO 4X/DAY #40 tabs 04/30/25 Unknown Rx tablet cyclobenzaprine 10 mg tablet 10 mg PO TID PRN Muscle Spasm #20 08/13/25 Unknown Rx TABLETS lidocaine 5 % topical patch 1 patch topical DAILY #15 ea 08/13/25 Unknown Rx (Lidoderm) prednisone 20 mg tablet 40 mg (2 x 20 mg) PO DAILY 5 days 08/13/25 Unknown Rx #10 tabs ondansetron 4 mg disintegrating 4 mg PO TID PRN nausea and 10/12/25 Unknown Rx tablet vomiting #21 tabs pantoprazole 40 mg tablet,delayed 40 mg PO DAILY 30 days #30 tabs 10/12/25 Unknown Rx release (Protonix) sucralfate 1 gram tablet (Carafate) 1 g PO TID 14 days #42 tabs 10/12/25 Unknown Rx Allergy/AdvReac Type Severity Reaction Status Date / Time No Known Allergies Allergy Verified 10/11/25 23:45 Social History Smoking Status: Current every day smoker tobacco type: e-cigarettes ROS ROS ED Constitutional Constitutional ED: Denies chills or fever(s) Eyes Eyes: Denies change in vision ENT ENT ED: Denies sore throat Cardiovascular Cardiovascular: Denies chest pain Respiratory/Chest Respiratory/Chest: Denies cough or dyspnea Gastrointestinal Gastrointestinal: Reports abdominal pain and nausea; Denies diarrhea or vomiting Genitourinary Genitourinary ED: Denies dysuria or hematuria Musculoskeletal Musculoskeletal: Denies back pain or myalgias Integumentary Denies rash Neurologic Neurologic: Denies headache(s) Hematologic/Lymphatic Hematologic/Lymphatic: Denies easy bleeding or easy bruising Allergic/Immunologic Allergic/Immunologic ED: Denies mouth swelling or tongue swelling EXAM Physical Exam Const Vital Signs: 10/11/25 23:43 10/12/25 00:51 10/12/25 01:00 Temperature 96.8 F L Temperature Source Temporal Pulse Rate 125 H 86 Respiratory Rate 20 H Blood Pressure 150/85 H 126/74 H 137/93 H Blood Pressure Mean 106 91 107 Pulse Ox 100 100 Oxygen Delivery Method Room Air 10/12/25 01:53 10/12/25 01:53 Temperature 96.8 F L Temperature Source Pulse Rate 98 98 Respiratory Rate 17 17 Blood Pressure 137/93 H Blood Pressure Mean 107 Pulse Ox 100 100 Oxygen Delivery Method Room Air Positive well nourished and well developed General Appearance ED: well developed; Negative for pallor HEENT Reports moist mucous membranes HEENT Narrative: Normocephalic atraumatic No tongue or lip swelling no oral lesions no airway edema or compromise No secondary findings in the posterior pharynx to suggest infection Eyes PERRL and EOMs intact bilaterally General Eye ED: Negative for scleral icterus Neck supple Resp normal respiratory effort and clear to auscultation bilaterally Cardio regular rhythm Rate: tachycardic and other Other Details: Slightly tachycardic rate with regular rhythm No murmurs rubs or gallop Radial and carotid pulses are equal and symmetric GI non-distended and no masses GI Narrative: Abdomen is soft and nondistended with normal active bowel sounds. Patient has pain with palpation in the midepigastric region without voluntary guarding or rigidity No pulsatile mass No peritoneal signs Negative Celaya sign Auscultation: normoactive bowel sounds Palpation: soft Back/Spine no CVA tenderness Extremity normal to inspection Neuro oriented x3, CN's II-XII intact bilaterally and no sensory deficits noted Sensorium / Orientation: alert Motor Exam: strength 5/5 throughout Psych mental status grossly normal Skin no rashes or lesions noted and no wounds General Skin Exam: Negative for jaundice or pallor MDM MDM MDM Narrative Medical decision making narrative: Patient arrived to the ER mildly hypertensive and tachycardic but states that he just walked here and is nervous. With pain greatest in the midepigastric region patient could have gastritis versus gastric ulcer versus gastric perforation versus pancreatitis versus biliary colic or acute cholecystitis. Secondary to this I did elect to perform basic laboratory studies. Patient was also given IV fluids and GI cocktail and Protonix as concern for gastritis as a cause of his symptoms was high in the differential especially as he admits to moderate caffeine use and daily vaping. Patient does not have leukocytosis or left shift going against a systemic infection. He has no signs of acute kidney injury or electrolyte abnormality. Lipase is normal going against pancreatitis and liver enzymes are also within normal range going against biliary colic/acute cholecystitis. After receiving fluids a GI cocktail Protonix patient did report improvement of his pain and on reevaluation his abdomen remains soft and nonsurgical. Therefore I do not feel there is need for CT scan at this time. Patient be placed on Zofran Protonix and Carafate for home as symptoms are most consistent with gastritis. He understands that if symptoms are not improving over the next few days of medication he may need reevaluated and potential CT scan but at this time as workup and exam does not indicate systemic infection or concern for gastric perforation he is otherwise safe for discharge History & Record Review Discussion w/independent historian: Patient Lab Data Attestation: I reviewed the patient's lab results. Labs: Laboratory Results - last 24 hr 10/11/25 00:25 WBC 7.4 RBC 4.73 Hgb 14.1 Hct 42.4 MCV 89.6 MCH 29.8 MCHC 33.3 RDW Std Deviation 42.7 RDW Coeff of [place] 12.9 Plt Count 153 MPV 10.8 Immature Gran % (Auto) 0.700 Neut % (Auto) 73.4 H Lymph % (Auto) 17.3 L [place] % (Auto) 7.4 Eos % (Auto) 0.7 Baso % (Auto) 0.5 Absolute Neuts (auto) 5.5 Absolute Lymphs (auto) 1.29 Nucleated RBC % 0 Sodium 140 Potassium 3.7 Chloride 102 Carbon Dioxide 27.1 Anion Gap 11 BUN 15 Creatinine 0.81 Estim Creat Clear Calc 179.69 Est GFR (MDRD) Non-Af 126 BUN/Creatinine Ratio 18.9 Glucose 94 Calcium 9.2 Total Bilirubin 0.32 Direct Bilirubin 0.15 AST 29 ALT 44 Alkaline Phosphatase 75 Total Protein 6.9 Albumin 4.1 Globulin 2.8 Lipase 19 Discharge Plan Triage Chief Complaint: Abd Pain ED Provider: Hugo Baltazar Dx/Rx/DC Orders Clinical Impression: Gastritis, Nausea Instructions: Treating Gastritis, ED Gastritis (Adult) Prescriptions: New ondansetron 4 mg tablet,disintegrating 4 mg PO TID PRN (Reason: nausea and vomiting) Qty: 21 0RF sucralfate [Carafate] 1 gram tablet 1 g PO TID 14 Days Qty: 42 0RF pantoprazole [Protonix] 40 mg tablet,delayed release (DR/EC) 40 mg PO DAILY 30 Days Qty: 30 0RF No Action hydrocodone-acetaminophen 5-325 mg tablet 1 tab PO Q6H PRN PRN (Reason: Pain) 3 Days Qty: 10 0RF penicillin V potassium 500 mg tablet 500 mg PO 4X/DAY Qty: 40 0RF lidocaine [Lidoderm] 5 % adhesive patch,medicated 1 patch topical DAILY Qty: 15 0RF Rx Instructions: leave on most painful area for up to 12 hrs cyclobenzaprine 10 mg tablet 10 mg PO TID PRN (Reason: Muscle Spasm) Qty: 20 0RF prednisone 20 mg tablet 40 mg PO DAILY 5 Days Qty: 10 0RF Primary Care Provider: Care Physician,No Primary Referrals: Donnie Hutchins MD [Med Staff - Active Staff, Family Practice] Care Physician,No Primary [Primary Care Provider, Medical] Activity Restrictions/Additional Instructions: Your history and exam and lab work would indicate your stomach pain is most likely from inflammation and irritation to your stomach known as gastritis. Please reduce your caffeine intake and also try to quit smoking/vaping as this can worsen symptoms. Take the prescribed medication as directed to help control the gastritis. If your symptoms worsen or you have any further concerns return to the ER for repeat evaluation. Print Language: Thai Disposition Disposition: Home, Self Care Discharge Date/Time: 10/12/25 01:55
[2025-10-12 01:53] VITALS: BP 137/93; PULSE 98; RESP 17; TEMP 36; O2SAT 100
== END 2025-10-12 01:55 | disposition home or self-care (01) ==
PROVIDERS: Emergency Provider Emergency Medicine; Visit Provider Emergency Medicine
DX: R10.13 Epigastric pain (principal); K29.70 Gastritis, unspecified, without bleeding; R11.0 Nausea; F17.290 Nicotine dependence, other tobacco product, uncomplicated
CPT/HCPCS: 80048; 80076; 83690; 85025; 96365; 99284; A4216